=== PATIENT | female | born 1970 | race Caucasian/White ===

== ENCOUNTER 2021-01-20 12:35 | Emergency (ER) | payer OTHER, SELFPAY ==
--- NOTE | 2021-01-20 | ECG_ITS ---
Test Reason : PALPITATIOMS Blood Pressure : / mmHG Vent. Rate : 065 BPM Atrial Rate : 065 BPM P-R Int : 166 ms QRS Dur : 084 ms QT Int : 428 ms P-R-T Axes : 016 -23 001 degrees QTc Int : 445 ms Normal sinus rhythm Minimal voltage criteria for LVH, may be normal variant Borderline ECG No previous ECGs available Referred By: Orion Naylor Electronically Signed By:CHERYL LAKE MD
[2021-01-20 12:41] VITALS: BP 165/99; PULSE 86; RESP 17; TEMP 37; O2SAT 97; BMI 48.4
--- NOTE | 2021-01-20 14:23 | ED_ITS ---
HPI - Arrhythmia/Palpitations General Chief Complaint: Arrhythmia/Palpitations Stated Complaint: palpitation Time Seen by Provider: 01/20/21 14:19 Source: patient Mode of arrival: ambulatory Limitations: no limitations History of Present Illness HPI narrative: intermittent palpitations for the past month, this is the first time being seen. MD complaint: rapid heart beat and palpitations Onset (ago): month(s) Duration: intermittent (last for few seconds only) Severity: moderate Context: occurred during rest and occurred during exertion Related Data Allergies Allergy/AdvReac Type Severity Reaction Status Date / Time ibuprofen [IBUPROFEN] Allergy Intermediate SWELLING/HIVES, Verified 01/20/21 12:41 hives, oral swelling Review of Systems Constitutional: Constitutional: Reports no additional constitutional complaints Eyes: Eyes: Reports no additional eye complaints ENT: Denies dizziness Cardiovascular: Cardiovascular: Reports no additional cardiovascular complaints Respiratory: Respiratory: Reports as per HPI Gastrointestinal: Gastrointestinal: Reports no additional gastrointestinal complaints Genitourinary: Genitourinary: Reports no additional female genitourinary complaints Musculoskeletal: Musculoskeletal: Reports no additional musculoskeletal compl aints Integumentary/Breasts: Skin/Breast: Denies rash Neurologic: Reports system reviewed and no additional complaints, except as documented, Denies dizziness and Denies Sensory deficit (Neuro) Psychiatric: Psychiatric: Denies anxiety [facility] Past Medical History Surgical History (Updated 01/20/21 @ 12:44 by Lianet Arrington RN) Hx of cholecystectomy Social History Social History Smoking Status: Never smoker Use of substances other than those prescribed or required for medical reasons: No Advance Directives: No Advance Directives Information Provided: Yes Physical Exam Vital Signs: Vital Signs: Last Vital Signs Temp 98.8 F 01/20/21 14:46 Pulse 75 01/20/21 14:46 Resp 12 01/20/21 14:46 BP 135/66 01/20/21 14:46 Pulse Ox 98 01/20/21 14:46 Body Mass Index 48.4 Const: General: healthy appearing Nutritional Appearance: average body habitus Orientation/consciousness: oriented to person and patient oriented x3 Limitations: no limitations HENMT: Head: Yes normal to inspection Ears: external ears normal General nose exam: Normal external nose present Mouth: Normal oral and palatal mucosa present and oropharynx normal Throat: Yes posterior oropharynx normal Eyes: General: appearance normal, both eyes and all related structures Neck: Other: supple Neck: Yes normal visual inspection Chest: Chest palpation & inspection: normal inspection of the chest Resp: Auscultation: clear to auscultation bilaterally Cardio: Jugular venous distension: no JVD Rate: regular rate Rhythm: regular rhythm Heart sounds: S1 normal heart sound present and S2 normal heart sound present GI: Inspection: Yes normal to inspection Palpation (GI): Soft to palpation, nontender and No hepatosplenomegaly present Auscultation: normal bowel sounds : General: Yes no CVA tenderness Back/Spine/Pelvis: Back: no CVA tenderness Skin: General skin exam: no rashes or lesions noted Neuro: General: oriented to person and patient oriented x3 Cranial nerves: Yes CN's II-XII intact bilaterally Motor exam (neuro): 5/5 motor strength present throughout Sensory Exam: No Sensory deficit (Neuro) Extrem: General: Yes normal to inspection Psych: Appearance: grossly normal Course Course Course Narrative: resting comfortably, normal vitals, normal EKG, will dc home MDM - Arrhythmia/Palpitations MDM Narrative Medical decision making narrative: no evidence of arrhythmia, needs 30 day holter monitor Differential Diagnosis Differential diagnosis: Likely palpitations Lab Data Result diagrams: 01/20/21 14:56 01/20/21 14:55 Labs: Lab Results 01/20/21 01/20/21 01/20/21 Range/Units 14:55 14:55 14:56 WBC 7.8 (4.8-10.8) X10*3/uL RBC 4.67 (4.20-5.50) X10*6/uL Hgb 9.9 L (12.0-16.0) g/dl Hct 33.6 L (37-47) % MCV 71.9 L (80-98) fL MCH 21.2 L (27.0-33.0) pg MCHC 29.5 L (31.0-35.0) g/dl RDW 17.8 H (11.0-16.0) % Plt Count 272 (160-400) X10*3/uL MPV 10.0 (9.4-12.3) fL Immature Gran % (Auto) 0.3 (0.0-0.4) % Neut % (Auto) 64.8 (45-73) % Lymph % (Auto) 24.9 (20-40) % [place] % (Auto) 8.3 (2-11) % Eos % (Auto) 1.3 (0-4) % Baso % (Auto) 0.4 (0-2) % Lymph # (Auto) 1.9 (1.2-4.9) X10*3/uL [place] # (Auto) 0.6 (0.1-1.2) X10*3/uL Eos # (Auto) 0.1 (0.0-0.4) X10*3/uL Baso # (Auto) 0.0 (0.0-0.2) X10*3/uL Abs Immat Gran (auto) 0.02 (0.00-0.03) X10*3/uL Absolute Neuts (auto) 5.0 (2.0-8.3) X10*3/uL Absolute Nucleated RBC 0.000 (0.0-0.012) X10*3/uL Nucleated RBC % (auto) 0.0 (0.0-0.2) /100WBC Sodium 136 (135-145) mmol/L Potassium 3.8 (3.3-5.1) mmol/L Chloride 99 (96-108) mmol/L Carbon Dioxide 29 (22-29) mmol/L Anion Gap 12 (12-20) BUN 10 (9-16) mg/dL Creatinine 0.83 (0.5-1.4) mg/dL Estim Creat Clear Calc 117.7 Estimated GFR > 60 Random Glucose 90 (60-115) mg/dL Calcium 8.9 (8.4-10.2) mg/dL Troponin I High Sens < 3.5 (<3.5-17.0) ng/L TSH 1.23 (0.32-4.0) uIU/mL Discharge Plan Discharge Clinical Impression: Palpitations Patient Disposition: Home, Self-Care Instructions: Heart Palpitations (ED) Referrals: Isabel Valentine MD [Primary Care Provider] - 2 days
[2021-01-20 14:46] VITALS: BP 135/66; PULSE 70; PULSE 75; RESP 12; TEMP 37.1; O2SAT 98
[2021-01-20 15:04] LABS: MANUAL DIFF FLAG NO
[2021-01-20 15:07] LABS: Basophils Percent Auto 0.4 % (0-2); Eosinophils Absolute Auto 0.1 X10*3/uL (0.0-0.4); Eosinophils Percent Auto 1.3 % (0-4); Hematocrit 33.6 % (37-47); Hemoglobin 9.9 g/dl (12.0-16.0); Imm Gran Abs Auto 0.02 X10*3/uL (0.00-0.03); Imm Gran Pct Auto 0.3 % (0.0-0.4); Lymphocytes Absolute Auto 1.9 X10*3/uL (1.2-4.9); Lymphocytes Percent Auto 24.9 % (20-40); Mean Corpuscular HGB Conc 29.5 g/dl (31.0-35.0); Mean Corpuscular Hemoglobin 21.2 pg (27.0-33.0); Mean Corpuscular Volume 71.9 fL (80-98); Monocytes Absolute Auto 0.6 X10*3/uL (0.1-1.2); Monocytes Percent Auto 8.3 % (2-11); Neutrophils Percent Auto 64.8 % (45-73); Platelet Count 272 X10*3/uL (160-400); Red Blood Count 4.67 X10*6/uL (4.20-5.50); Red Cell Distribution Width 17.8 % (11.0-16.0); White Blood Count 7.8 X10*3/uL (4.8-10.8)
[2021-01-20 15:27] LABS: Anion Gap 12 (12-20); Blood Urea Nitrogen 10 mg/dL (9-16); Calcium 8.9 mg/dL (8.4-10.2); Carbon Dioxide 29 mmol/L (22-29); Chloride 99 mmol/L (96-108); Creatinine Clr Calc Pharmacy 117.7; Estimated Glomerular Filt Rate > 60; Glucose Random 90 mg/dL (60-115); Potassium 3.8 mmol/L (3.3-5.1); Sodium 136 mmol/L (135-145)
[2021-01-20 15:34] LABS: Troponin-I High Sensitivity < 3.5 ng/L (<3.5-17.0)
[2021-01-20 15:49] LABS: TSH reflex Free T4 1.23 uIU/mL (0.32-4.0)
[2021-01-20 17:14] VITALS: BP 145/70; PULSE 67; RESP 18; TEMP 36.4; O2SAT 98
== END 2021-01-20 17:37 | disposition home or self-care (01) ==
PROVIDERS: Emergency Provider Emergency Medicine; PCP Internal Medicine
DX: R00.2 Palpitations (principal)
CPT/HCPCS: 36415; 80048; 84443; 84484; 85025; 93005; 99283; 99284

== ENCOUNTER 2021-10-23 10:54 | Outpatient (REF) | payer OTHER, SELFPAY ==
--- NOTE | ~2021-10-23 | US_ITS ---
EXAMINATION: US PELVIS CLINICAL INFORMATION: Uterine leiomyoma. History of fibroids and heavy menses. COMPARISON: Ultrasound pelvis 04/10/2015. TECHNIQUE: Ultrasound of the pelvis is performed using both transabdominal and transvaginal transducers along with Doppler. Transvaginal imaging is performed due to inadequate visualization transabdominally. FINDINGS: Uterus: The uterus is and anteflexed measuring 12.5 cm in length, 7.5 cm in AP and 8.5 cm in transverse dimension. The double wall endometrial thickness is 1.2 cm and appears heterogeneous with echogenic intraluminal moving blood products. The uterus is smooth in contour and has normal myometrial echogenicity. There is a small hypoechoic lesion in the posterior fundus measuring 2.2 x 2.2 x 2.2 cm. Previously it measured 1.8 x 1.5 x 0.9 cm. There are small anechoic nabothian cysts seen. Adnexa: Both ovaries are visualized. There is normal color flow to the adnexa. There is no ovarian torsion. There is no pelvic ascites or fluid collection. Right ovary is not visualized. Left ovary is not visualized. There is no free fluid in the cul-de-sac. US/US pelvic and transvaginal IMPRESSION: Heterogeneous endometrium measuring 1.2 cm with a small posterior fundal fibroid which is slightly increased in size since 04/10/2015. Small nabothian cysts in the cervix. Both ovaries are not seen.
== END 2021-10-23 10:55 | disposition home or self-care (01) ==
LOC: HO.US 10:54
PROVIDERS: Visit Provider Advanced Practice Midwife
DX: D25.9 Leiomyoma of uterus, unspecified (principal)
CPT/HCPCS: 76830; 76856

== ENCOUNTER 2021-10-28 11:04 | Outpatient (REF) | payer OTHER, SELFPAY ==
[2021-10-28 13:23] LABS: Hematocrit 35.9 % (37.0-47.0); Hemoglobin 11.7 g/dl (12.0-16.0); Mean Corpuscular HGB Conc 32.6 g/dl (31.0-35.0); Mean Corpuscular Volume 89.1 fL (80.0-98.0); Mean Platelet Volume 10.6 fL (9.4-12.3); Platelet Count 287 X10*3/uL (160-400); Red Blood Count 4.03 X10*6/uL (4.20-5.50); Red Cell Distribution Width 13.2 % (11.0-16.0); White Blood Count 5.4 X10*3/uL (4.8-10.8)
[2021-10-28 13:59] LABS: HCG Quantitative < 2 mIU/mL; TSH reflex Free T4 1.17 uIU/mL (0.32-4.0)
[2021-10-28 15:36] LABS: CT PCR NOT DETECTED (Not Detect.); NG PCR NOT DETECTED (Not Detect.)
[2021-10-30 22:52] LABS: HPV mRNA E6/E7 rflx Not Detected (Not Detected)
== END 2021-10-28 11:05 | disposition home or self-care (01) ==
LOC: HO.LAB 11:04
PROVIDERS: PCP Internal Medicine; Visit Provider Obstetrics & Gynecology
DX: Z01.419 Encounter for gynecological examination (general) (routine) without abnormal findings (principal); N93.9 Abnormal uterine and vaginal bleeding, unspecified
CPT/HCPCS: 36415; 84443; 84702; 85027; 87491; 87591; 87624; 88142

== ENCOUNTER 2021-11-12 12:22 | Outpatient (REF) | payer OTHER, SELFPAY | END 2021-11-12 12:23 | disposition home or self-care (01) | LOC: HO.LAB 12:22 | PROVIDERS: PCP Internal Medicine; Visit Provider Obstetrics & Gynecology | DX: N93.9 Abnormal uterine and vaginal bleeding, unspecified (principal); D25.2 Subserosal leiomyoma of uterus; I10 Essential (primary) hypertension; Z88.8 Allergy status to other drugs, medicaments and biological substances; Z30.433 Encounter for removal and reinsertion of intrauterine contraceptive device | CPT/HCPCS: 58100; 58300; 88305; J7298 ==

== ENCOUNTER → 2021-11-17 08:04 | Outpatient (BNVA) | payer OTHER, SELFPAY | PROVIDERS: PCP Internal Medicine; Visit Provider Obstetrics & Gynecology ==

== ENCOUNTER 2021-11-19 08:18 | Day surgery (SDC) | payer OTHER, SELFPAY ==
--- NOTE | 2021-11-18 08:12 | HO.ANESPROP2 ---
HPI - Anesthesia Eval Consult details Narrative: 51yo F for Uterine Ablation w/Novasure PMFSH Active Problems Active Problems: All Active Problems (Updated 10/28/21 @ 12:02 by Bolivar King MD) Well woman exam (Acute) Abnormal uterine bleeding (AUB) (Acute) Past Medical History Medical History Hypertension Surgical History Surgical History History of Hx of cholecystectomy Social History Social History Patient Tobacco Use Status: Never used Tobacco Meds Allergies Allergy/AdvReac Type Severity Reaction Status Date / Time ibuprofen [IBUPROFEN] Allergy Intermediate SWELLING/HIVES, Verified 11/12/21 12:45 hives, oral swelling Home Medications Medication Instructions Recorded Confirmed Last Taken Type ferrous sulfate 325 mg (65 mg 325 mg PO BID 10/28/21 Unknown History iron) tablet lisinopril 10 mg tablet 10 mg PO DAILY 10/28/21 11/19/21 History Exam Exam Date and Time: November 18, 202112 Narrative Narrative: EKG 01/2021 Vent. Rate : 065 BPM ? ? Atrial Rate : 065 BPM ?? P-R Int : 166 ms? QRS Dur : 084 ms ? ? QT Int : 428 ms ? ? ? P-R-T Axes : 016 -23 001 degrees ?? QTc Int : 445 ms ? Normal sinus rhythm Minimal voltage criteria for LVH, may be normal variant Borderline ECG No previous ECGs available Assessment and Plan Assessment Anesthesia Assessment: Chart Reviewed
[2021-11-19 08:32] VITALS: BMI 46.0
[2021-11-19 08:48] LABS: UPreg QC Valid YES
[2021-11-19 08:49] LABS: Urine Pregnancy NEGATIVE (NEGATIVE)
[2021-11-19 08:54] VITALS: BP 135/74; PULSE 90; RESP 16; TEMP 37.3; O2SAT 97
[2021-11-19] MEDS: Lactated Ringers 1,000 ML 100 ML IVCONT (09:06)
--- NOTE | 2021-11-19 10:11 | P.HPSUR_ITS ---
Pre-Procedural Eval Section A Date of Service: 11/19/21 The patient is an INPATIENT: No Changes since office visit: No Cold of Flu in the past 2 weeks, No New Medical Problems, No Changes in Medication and No Patient answered all questions The History & Physical has been completed within 30 days and I have reviewed it.: Yes Section B Chief Complaint: bleeding Allergies: Allergies Allergy/AdvReac Type Severity Reaction Status Date / Time ibuprofen Allergy Intermediate SWELLING/HIVES Verified 11/12/21 12:45 [IBUPROFEN] , hives, oral swelling Plan Diagnosis/Plan: Unchanged I have reviewed the history and physical and performed a pertinent physical examination on my patient. No changes have occurred unless specified.
--- NOTE | 2021-11-19 10:28 | P.BOP_ITS ---
Brief Operative Note Date of Service: 11/19/21 Pre-op diagnosis: Menometrorrhagia Post-op diagnosis: same Procedure: NovaSure Endometrial Ablation Surgeon: Bolivar King MD Anesthesia: MAC Was an Receiving Dock Checker used for this Procedure?: No Estimated blood loss (mL): 0 Pathology: none sent Condition: stable Disposition: PACU
--- NOTE | 2021-11-19 10:29 | P.OP_ITS ---
Operative Note Operative Note Date of Service: 11/19/21 Narrative: Preop diagnosis: Menorrhagia Post Op Diagnosis: Same Op: Novasure Endometrial Ablation Anesthesia: MAC Building Performance Specialist: None QBL: Minimal Pathology: None Complications: None Procedure: The patient was put in the dorsal lithotomy position. She was prepped and draped in the usual sterile manner. Bimanual exam prior to prepping revealed a mobile, anteverted uterus. A speculum was placed in the vagina and the anterior lip of the cervix was grasped with a single toothed tenaculum and brought forward. Taking care not to enter deep into the uterus, a sound was passed inside to measure the length of the uterus and cervix. This length was found to be 8 cm. Next, Hegar dilator was inserted into the cervical os to measure the cervical length which was 3 cm. This yielded an endometrial cavity length of 6.5 cm. A series of Hegar dilators were then inserted sequentially into the cervical os up to a size of 5 mm. The Novasure device was then opened and tested; the fan deployed easily. The instrument was set to the correct cavity length and introduced into the uterine cavity. The fan was slowly deployed with gentle movements to ensure a snug fit within the cavity. The cavity width read 4.5 cm. The measurements were imported and a cavity check was done. The trumpet was then slid down to the cervix and the device was activated. The total burn time was 91 seconds. The fan was retracted and device removed. The fan was examined and revealed charred tissue. The tenaculum was removed and the cervix examined for hemostasis which was achieved using pressure. Finally the speculum was removed. The patient tolerated the procedure well and was brought to the recovery room in a stable condition. At the end of the procedure all sponges and instruments were counted and correct. The blood loss was minimal and there were no complications.
[2021-11-19 10:35] VITALS: BP 116/61; PULSE 77; RESP 18; TEMP 36.6; O2SAT 100
[2021-11-19 10:40] VITALS: BP 127/64; PULSE 77; RESP 16; O2SAT 99
[2021-11-19 10:45] VITALS: BP 132/65; PULSE 65; RESP 17; O2SAT 98
[2021-11-19] MEDS: oxyCODONE HCl Immed Release 5 MG TABLET 10 MG PO (10:49)
[2021-11-19] MEDS: Acetaminophen 325 MG TABLET 650 MG PO (10:50)
[2021-11-19 10:52] VITALS: BP 139/75; PULSE 66; RESP 17; O2SAT 98
[2021-11-19 11:07] VITALS: BP 138/77; PULSE 79; RESP 17; TEMP 36.6; O2SAT 98
== END 2021-11-19 11:32 | disposition home or self-care (01) ==
PROVIDERS: Nurse Practitioner; PCP Internal Medicine; Visit Provider Obstetrics & Gynecology
PROC: (CPT 58353; principal; 2021-11-19 10:00)
DX: N93.9 Abnormal uterine and vaginal bleeding, unspecified (principal); N92.0 Excessive and frequent menstruation with regular cycle; N85.4 Malposition of uterus; Z98.891 History of uterine scar from previous surgery; I10 Essential (primary) hypertension; Z79.899 Other long term (current) drug therapy; Z88.8 Allergy status to other drugs, medicaments and biological substances; Z90.49 Acquired absence of other specified parts of digestive tract
CPT/HCPCS: 58353; 81025; J1100; J2250; J2405; J3010

== ENCOUNTER 2021-11-24 14:41 | Outpatient (REF) | payer OTHER, SELFPAY ==
--- NOTE | 2021-11-19 09:25 | P.CONAN_ITS ---
PMFSH Active Problems Active Problems: All Active Problems (Updated 10/28/21 @ 12:02 by Bolivar King MD) Well woman exam (Acute) Abnormal uterine bleeding (AUB) (Acute) Past Medical History Medical History Hypertension Surgical History Surgical History History of Hx of cholecystectomy History of Problems with Anesthesia: No Social History Social History Patient Tobacco Use Status: Never used Tobacco Use of substances other than those prescribed or required for medical reasons: No Are you DNR?: No Advance Directives: No Advance Directives Information Provided: Yes Meds Allergies Allergy/AdvReac Type Severity Reaction Status Date / Time ibuprofen Allergy Intermediate SWELLING/HIVES Verified 11/12/21 12:45 [IBUPROFEN] , hives, oral swelling Home Medications Medication Instructions Recorded Confirmed Last Taken Type ferrous sulfate 325 325 mg PO BID 10/28/21 Unknown History mg (65 mg iron) tablet lisinopril 10 mg 10 mg PO DAILY 10/28/21 11/19/21 History tablet Exam Exam Date and Time: November 19, [id number] Airway Mallampati Class: II TM Dist: >3cm Neck ROM: Full Loose/Missing/Broken Teeth: No Heart: RRR Lungs: CTA Assessment and Plan Assessment Anesthesia Assessment: Anesthesia Plan Discussed and Chart Reviewed Final Anesthetic Review History of Problems with Anesthesia: No NPO: Yes ASA Class: III Final Preanesthetic Review: Meds/Allgs Chart Reviewed, Consent Obtained/Reviewed and Anes Risks/Benef Reviewed Patient Risk: Intermediate Procedure Risk: Low Anesthetic Plan Anesthetic Plan: GA Disposition: Standard PACU
--- NOTE | ~2021-11-24 | MM_ITS ---
EXAMINATION: MM SCREENING DIGITAL BREAST TOMOSYNTHESIS, BILATERAL CLINICAL INFORMATION: Screening. Asymptomatic. No known family history breast cancer. The lifetime risk of breast cancer based on the Tyrer-Cuzick Model is 8%. COMPARISON: Mammography: 12/24/2015, 05/28/2015, 05/13/2015; targeted right breast ultrasound 05/28/2015. TECHNIQUE: Digital breast tomosynthesis is performed in both the craniocaudal and mediolateral oblique views along with computer-aided detection (CAD). Synthesized 2D images are generated from the tomosynthesis. FINDINGS: There are scattered areas of fibroglandular density (ACR BI-RADS breast composition Category b). Right breast has a spiculated mass posterior upper outer quadrant approximately 1.4 cm in size. Right breast also has a smooth nodule with partially obscured margins, mid 7:00 position approximately 0.9 cm slightly, possibly a cyst. The left breast is unremarkable. There is no interval mass or architectural abnormality. Neither breast shows abnormal calcifications. The bilateral axilla and skin contours are unremarkable. MM/MM tomosynthesis screening BI IMPRESSION: Right: -Spiculated mass upper outer quadrant, 1.4 cm. -Smooth nodule mid central 7:00 position, 0.9 cm. Left: -No mammographic evidence of malignancy. ASSESSMENT: BI-RADS 0: Incomplete - Need Additional Imaging Evaluation RECOMMENDATION: 1. Additional views of the spot CC, spot ML 2 findings right breast. 2. Targeted ultrasound right breast. 3. Radiology department staff will contact the patient for additional imaging. This patient's information was entered into a reminder system with a target due date for their next mammogram.
== END 2021-11-24 14:42 | disposition home or self-care (01) ==
LOC: HO.MAMMO 14:41
PROVIDERS: PCP Internal Medicine; Visit Provider Obstetrics & Gynecology
DX: Z12.31 Encounter for screening mammogram for malignant neoplasm of breast (principal)
CPT/HCPCS: 77063; 77067

== ENCOUNTER → 2021-12-03 12:34 | Outpatient (BNVA) | payer OTHER, SELFPAY | PROVIDERS: Visit Provider Obstetrics & Gynecology ==

== ENCOUNTER 2021-12-05 08:46 | Outpatient (REF) | payer OTHER, SELFPAY ==
--- NOTE | ~2021-12-05 | MM_ITS ---
EXAMINATION: MM DIAGNOSTIC DIGITAL BREAST TOMOSYNTHESIS, RIGHT US DIAGNOSTIC ULTRASOUND BREAST, RIGHT CLINICAL INFORMATION: Recall from screening for spiculated mass upper outer right breast. Also question smooth nodule/cyst central 7:00 position. COMPARISON: Mammography: 11/24/2021, 12/24/2015 TECHNIQUE: Digital breast tomosynthesis is performed. 2D images are generated from the tomosynthesis. The following views are obtained: Spot CC x2, spot ML x2 Ultrasound right breast is targeted to the upper outer quadrant and right axilla. Additional imaging also performed 7:00 through 10:00 position. Grayscale imaging and color Doppler are performed without and with harmonics. FINDINGS: There are scattered areas of fibroglandular density (ACR BI-RADS breast composition Category b). Additional spot views confirm spiculated lesion in area of recent mammographic concern posterior upper outer quadrant. There is no other mass or cyst clearly seen on the additional projections central outer right breast. Ultrasound right breast demonstrates suspicious irregular hypoechoic lesion 10:00 position 8 cm from nipple measuring approximately 1.1 cm. Additional imaging right axilla demonstrates no lymphadenopathy. Additional imaging right breast shows no other cystic or solid mass or architectural abnormality. Results are discussed with the patient at time of visit. Ultrasound-guided core biopsy of the right breast mass is recommended. MM/MM tomosynthesis added views R IMPRESSION: Spiculated lesion upper outer quadrant with ultrasound correlate. No lymphadenopathy. ASSESSMENT: BI-RADS 4: Suspicious RECOMMENDATION: Ultrasound-guided core biopsy spiculated lesion upper outer quadrant right breast. This patient's information was entered into a reminder system with a target due date for their next mammogram.
== END 2021-12-05 08:47 | disposition home or self-care (01) ==
LOC: HO.MAMMO 08:46
PROVIDERS: Visit Provider Obstetrics & Gynecology
DX: N63.13 Unspecified lump in the right breast, lower outer quadrant (principal)
CPT/HCPCS: 76642; 77061; 77065

== ENCOUNTER → 2021-12-09 09:58 | Outpatient (BNVA) | payer OTHER, SELFPAY | PROVIDERS: PCP Internal Medicine; Visit Provider Obstetrics & Gynecology ==

== ENCOUNTER 2021-12-11 09:35 | Outpatient (REF) | payer OTHER, SELFPAY ==
--- NOTE | ~2021-12-11 | MM_ITS ---
EXAMINATION: ULTRASOUND GUIDED CORE BIOPSY BREAST, RIGHT POST PROCEDURE DIGITAL BREAST TOMOSYNTHESIS, RIGHT CLINICAL INFORMATION: Spiculated 1.1 cm lesion upper outer right breast. COMPARISON: Mammography and right breast ultrasound 12/05/2021, mammography 11/24/2021. FINDINGS: Proper informed consent is obtained from the patient after discussion of the procedure, potential risks and complications, and alternatives. Patient was given an opportunity for questions. The patient appeared to understand. The patient consented to the procedure and signed the consent form. GUIDANCE: Ultrasound-guided; aseptic technique. LESION: Spiculated nodule posterior upper outer right breast. APPROACH: Lateral medial. ANESTHESIA: 15 mL carbonated 1% lidocaine. DERMATOTOMY: Single skin wil dermatotomy performed. NEEDLE: 14-gauge Achieve core biopsy device with 13.5-gauge co-axial guide needle. CORES: 6. CLIP: HydroMARK; shape: open coil. POST PROCEDURE DIGITAL BREAST TOMOSYNTHESIS, RIGHT: The post biopsy mammogram is performed in separate room using separate digital tomography equipment from the biopsy procedure. CC and ML views are obtained. Synthesized 2-D images are generated from the tomography. There are scattered areas of fibroglandular density (breast composition category: b). The clip marker is in position. No gross hematoma. The patient tolerated the procedure well. No immediate complications. Home instructions reviewed with the patient. Final pathology results are pending. MM/MM diagnostic mammo unilat RT IMPRESSION: 1. Status post ultrasound-guided core biopsy right breast. 2. Clip placed: HydroMARK; shape: open coil. 3. Pathology pending. An addendum report will be issued.
[2021-12-11] MEDS: Lidocaine HCl 1 % 20 ML VIAL 14 ML SUBCUT (11:04)
[2021-12-11] MEDS: Sodium Bicarbonate 8.4% 50 MEQ/50 ML VIAL SUBCUT (11:06)
== END 2021-12-11 09:36 | disposition home or self-care (01) ==
LOC: HO.MAMMO 09:35
PROVIDERS: PCP Internal Medicine; Visit Provider Surgery
DX: R92.8 Other abnormal and inconclusive findings on diagnostic imaging of breast (principal)
CPT/HCPCS: 19083; 77065; 88305; 88342; 88360; A4648

== ENCOUNTER → 2021-12-16 10:03 | Outpatient (BNVA) | payer OTHER, SELFPAY | PROVIDERS: PCP Internal Medicine; Referring Provider Internal Medicine; Visit Provider Surgery | DX: R92.8 Other abnormal and inconclusive findings on diagnostic imaging of breast (principal) ==

== ENCOUNTER 2021-12-24 06:15 | Day surgery (SDC) | payer OTHER, SELFPAY ==
--- NOTE | ~2021-12-24 | MM_ITS ---
EXAMINATION: MM MAMMOGRAM GUIDED NEEDLE LOCALIZATION BREAST, RIGHT MM NEEDLE LOCALIZATION SPECIMEN FROM THE RIGHT BREAST CLINICAL INFORMATION: Recent diagnosis invasive ductal carcinoma with DCIS. COMPARISON: Mammography 11/24/2021, 12/05/2021, 12/11/2021, ultrasound right breast 12/05/2021, ultrasound-guided core biopsy right breast 12/11/2021. TECHNIQUE NEEDLE LOC: Proper informed consent is obtained from the patient after discussion of the procedure, potential risks and complications, and alternatives including declining the procedure today. Patient was given an opportunity for questions. The patient appeared to understand. The patient consented to the procedure and signed the consent form. GUIDANCE: Digital mammography. APPROACH: Lateral Medial. TARGET: Mass with HydroMARK open coil clip marker. ANESTHESIA: Carbonated lidocaine 1%: 5 mL. LOCALIZATION MARKER: [place] MammaLok, 5 cm length. The skin is prepped and local anesthesia administered. The needle is positioned and position assessed with mammography. The wire is hooked into position. [place] needle protector placed. The patient tolerated the procedure well and had no immediate complication. Following the procedure, 4% lidocaine ointment was administered to the left areola and covered with Tegaderm in anticipation of nuclear lymphoscintigraphy injection for sentinel lymph node mapping. Procedure results called to medical radiation therapist (zoë) for Dr. Ibanez. TECHNIQUE SPECIMEN RADIOGRAPH: Imaging of the excised specimen is performed using digital mammography in 1 view. FINDINGS SPECIMEN RADIOGRAPH: The specimen shows the needle and hookwire are delivered intact. The biopsy clip marker is identified in the specimen adjacent to the localization needle. There are multiple fibroglandular densities in the specimen as well as some punctate calcifications adjacent to the localization needle tip. Results were called to Dr. Jin Ibanez in the operating room at the time of imaging. MM/MM needle loc RT IMPRESSION: 1. Status post right breast needle localization with wire hooked into position. 2. Post operative specimen radiograph obtained.
--- NOTE | ~2021-12-24 | NM_ITS ---
EXAMINATION: NM LYMPHOSCINTIGRAPHY BREAST, RIGHT CLINICAL INFORMATION: Recent diagnosis invasive ductal cancer with DCIS right breast upper outer quadrant. COMPARISON: Mammography 11/24/2021, 12/05/2021, 12/11/2021, needle localization right breast 12/24/2021. TECHNIQUE: Informed consent was obtained prior to the exam. Lidocaine gel administered to areola within 60 minutes of the procedure immediately following the localization procedure. Technetium 99m-Lymphoseek 0.5 mCi was divided into 4 syringes with intradermal administration at 4 quadrants around the peripheral areola. The patient tolerated the procedure well. Imaging is performed in 3 views within 40 minutes of injection. FINDINGS: There is strong activity around the areola. There is a single focus of focal activity at the low axillary tail consistent with a sentinel node. NM/NM sentinel node w imaging IMPRESSION: Status post breast radionuclide lymphoscintigraphy for sentinel lymph node mapping.
[2021-12-24 06:54] VITALS: BMI 14.5
[2021-12-24 07:04] LABS: UPreg QC Valid YES; Urine Pregnancy NEGATIVE (NEGATIVE)
[2021-12-24 07:08] VITALS: BP 139/82; PULSE 65; RESP 18; TEMP 37.1; O2SAT 97
[2021-12-24 07:24] VITALS: BMI 46.7
--- NOTE | 2021-12-24 07:27 | MHC.SHP ---
Pre-Procedural Eval Section A Date of Service: 12/24/21 The patient is an INPATIENT: No Changes since office visit: Yes Patient answered all questions; No Cold of Flu in the past 2 weeks, No New Medical Problems and No Changes in Medication The History & Physical has been completed within 30 days and I have reviewed it.: Yes Section B Chief Complaint: Infiltrating ductal carcinoma of right breast Allergies: Allergies Allergy/AdvReac Type Severity Reaction Status Date / Time ibuprofen [IBUPROFEN] Allergy Intermediate SWELLING/HIVES, Verified 12/16/21 10:08 hives, oral swelling Plan Diagnosis/Plan: Unchanged I have reviewed the history and physical and performed a pertinent physical examination on my patient. No changes have occurred unless specified.
--- NOTE | 2021-12-24 08:42 | P.CONAN_ITS ---
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) Abnormal mammogram of right breast (Acute) Abnormal ultrasound of breast (Acute) Abnormal mammogram (Acute) Well woman exam (Acute) Abnormal uterine bleeding (AUB) (Acute) Past Medical History Medical History Ductal carcinoma in situ of right breast Hypertension Infiltrating ductal carcinoma of right breast Family History Family History Paternal Grandmother Cancer of unknown origin Surgical History Surgical History History of Hx of cholecystectomy History of Problems with Anesthesia: No Social History Social History Alcohol intake: never Patient Tobacco Use Status: Never used Tobacco Use of substances other than those prescribed or required for medical reasons: No Are you DNR?: No Advance Directives: No Advance Directives Information Provided: Yes Recently lost weight without trying: No Meds Allergies Allergy/AdvReac Type Severity Reaction Status Date / Time ibuprofen [IBUPROFEN] Allergy Intermediate SWELLING/HIVES, Verified 12/16/21 10:08 hives, oral swelling Active Medications: Current Medications Lactated Ringer's (Lr) 1,000 mls @ 100 mls/hr IVCONT .Q10H NIKKI Home Medications Medication Instructions Recorded Confirmed Last Taken Type ferrous sulfate 325 mg (65 mg 325 mg PO BID 10/28/21 12/16/21 Unknown History iron) tablet lisinopril 10 mg tablet 10 mg PO DAILY 10/28/21 12/16/21 11/19/21 History Exam Exam Date and Time: December 24, 2021 0842 Height,Weight and Vital Signs: Height 5 ft 6 in Weight 131.542 kg Last Vital Signs Temp 98.7 F 12/24/21 07:08 Pulse 65 12/24/21 07:08 Resp 18 12/24/21 07:08 BP 139/82 12/24/21 07:08 Pulse Ox 97 12/24/21 07:08 Pertinent Lab Results Pertinent Lab Results: Laboratory Tests 12/24/21 06:50 Urine Test NEGATIVE Airway Mallampati Class: II TM Dist: >3cm Neck ROM: Full Loose/Missing/Broken Teeth: No Heart: RRR Lungs: CTA Assessment and Plan Assessment Anesthesia Assessment: Anesthesia Plan Discussed and Chart Reviewed Final Anesthetic Review History of Problems with Anesthesia: No NPO: Yes ASA Class: III Final Preanesthetic Review: Meds/Allgs Chart Reviewed, Consent Obtained/Reviewed and Anes Risks/Benef Reviewed Patient Risk: Low Procedure Risk: Low Anesthetic Plan Anesthetic Plan: GA Disposition: Standard PACU
[2021-12-24] MEDS: Lidocaine HCl 1 % 20 ML VIAL 9 ML SUBCUT (09:21)
[2021-12-24] MEDS: Sodium Bicarbonate 8.4% 50 MEQ/50 ML VIAL SUBCUT (09:22)
--- NOTE | 2021-12-24 10:28 | W.PM.OPN ---
Operative Note Operative Note Date of Service: 12/24/21 Narrative: Preoperative diagnosis: Infiltrating ductal carcinoma right breast Postoperative diagnosis: Infiltrating ductal carcinoma right breast Procedure: Right breast lumpectomy with needle localization, sentinel node biopsy right axilla Surgeon: Jin Ibanez MD Higher Level Teaching Assistant: Eri Altman PA-C Anesthesia: General LMA Indications for procedure: 51-year-old female patient presenting with a density noted on screening mammogram and ultrasound. She subsequent underwent ultrasound-guided core biopsy which confirmed an infiltrating ductal carcinoma, grade 2 with ductal carcinoma in situ, grade 2, ER/NV positive, HER2 Nazario negative, Ki-67 15%. She presents today for lumpectomy and sentinel node biopsy. Operative findings: Marking clip in the specimen x-ray. Gross pathology revealed adequate margins. Specimen: right breast lumpectomy, sentinel nodes 1 through 3, additional axillary tissue. Estimated blood loss: 5 mL Complications: none Procedure details: patient was brought to the OR placed in a supine position. After administering general anesthesia the patient's right breast and axilla were prepped or ChloraPrep and draped in a sterile fashion. A surgical time-out was called and the consent confirmed. Patient received preoperative antibiotics and Venodyne boots were in place. Local anesthesia consisting of 0.5% Sensorcaine was then infiltrated upper outer quadrant adjacent to the localizing needle. A curvilinear incision then made to include the entrance site of the localizing needle in the upper outer quadrant. This was carried out through subcutaneous tissue. Superior inferior skin flaps were then created. A core tissue surrounding the localizing needle was then obtained using electrocautery dissection. Margins were begun in the inferior margin followed by anterior and medial margin, superior margin, inferior margin and finally the lateral margin. This was marked with a long suture at the lateral margin , short suture on the superior margin, and loop suture in the posterior margin. Specimen was then sent to radiology and pathology for further examination. As the incision was in the upper outer quadrant adjacent to the axilla the sentinel node was excised to the same incision. The gamma probe was then used to identify the site of radio activity. This was grasped with an Allis clamp and a palpable node was identified at this location. This node was excised using the electrocautery and sent as sentinel node number 1 with counts of 13,300. 2 additional radioactive nodes were identified and excised. The additional piece of axillary tissue was also excised but contain no palpable lymph node. This was sent as additional axillary tissue. No further radioactive nodes or will nodes were identified in the right axilla. After confirmation of an adequate breast specimen the wounds were irrigated with saline solution and suctioned dry. Clavipectoral fascia was then reapproximated using interrupted 3-0 Polysorb sutures. The breast tissue and dermis reapproximated using interrupted 3-0 Polysorb sutures. Skin was then closed using a running subcuticular 4-0 Polysorb suture. Steri-Strips 2 x 2 gauze and Tegaderm were then applied. The patient tolerated the procedure well. Sponge, instrument, and needle counts were reported as correct. The patient was transferred to PACU in stable condition. Breast [place] Node Biopsy Substrate(s) used for sentinel node biopsy in the non-neoadjuvant setting: Radiotracer Substrate(s) used for sentinel node biopsy in the neoadjuvant setting: N/A All colored nodes or non-colored nodes present at the end of a dye filled lymphatic channel were removed, if dye was used as the substrate for localization: N/A All significantly radioactive nodes were removed, if radionuclide was used as the substrate for localization: Yes All palpably suspicious nodes were removed, if present: Yes If clips were placed in pathology-involved nodes, those nodes were identified and removed: N/A General Surg. - Synoptic Notes Breast [place] Node Biopsy Substrate(s) used for sentinel node biopsy in the non-neoadjuvant setting: Radiotracer Substrate(s) used for sentinel node biopsy in the neoadjuvant setting: N/A All colored nodes or non-colored nodes present at the end of a dye filled lymphatic channel were removed, if dye was used as the substrate for localization: N/A All significantly radioactive nodes were removed, if radionuclide was used as the substrate for localization: Yes All palpably suspicious nodes were removed, if present: Yes If clips were placed in pathology-involved nodes, those nodes were identified and removed: N/A
[2021-12-24 12:30] VITALS: BP 137/71; PULSE 71; RESP 20; TEMP 36.6; O2SAT 99
[2021-12-24 12:38] VITALS: BP 131/65; PULSE 75; RESP 16; O2SAT 95
[2021-12-24 12:44] VITALS: BP 129/67; PULSE 53; RESP 16; O2SAT 96
[2021-12-24 12:49] VITALS: BP 135/66; PULSE 51; RESP 16; O2SAT 98
[2021-12-24 13:08] VITALS: BP 136/67; PULSE 58; RESP 17; O2SAT 98
== END 2021-12-24 13:52 | disposition home or self-care (01) ==
PROVIDERS: Anesthesiology; PCP Internal Medicine; Visit Provider Surgery
PROC: (CPT 19301; principal; 2021-12-24 11:00)
PROC: (CPT 19301; 2021-12-24 11:00)
DX: C50.411 Malignant neoplasm of upper-outer quadrant of right female breast (principal); Z17.0 Estrogen receptor positive status [ER+]; I10 Essential (primary) hypertension; Z90.49 Acquired absence of other specified parts of digestive tract; Z88.8 Allergy status to other drugs, medicaments and biological substances; Z79.899 Other long term (current) drug therapy
CPT/HCPCS: 19301; 38525; 19281; 78195; 81025; 88305; 88307; 88329; 88342; A4648; A9520; J0690; J1100; J2250; J2405; J3010

== ENCOUNTER → 2022-01-01 14:05 | Outpatient (BNVA) | payer OTHER, SELFPAY | PROVIDERS: PCP Internal Medicine; Referring Provider Internal Medicine; Visit Provider Surgery | DX: Z13.89 Encounter for screening for other disorder (principal) ==

== ENCOUNTER → 2022-02-05 09:02 | Outpatient (BNVA) | payer OTHER, SELFPAY | PROVIDERS: PCP Internal Medicine; Referring Provider Internal Medicine; Visit Provider Surgery | DX: Z13.89 Encounter for screening for other disorder (principal) ==

== ENCOUNTER 2022-03-23 11:46 | Emergency (ER) | payer OTHER, SELFPAY ==
[2022-03-23 11:54] VITALS: BP 156/96; PULSE 79; RESP 18; TEMP 36.6; O2SAT 97; BMI 46.0
[2022-03-23 12:15] LABS: COVID-19 Test Positive (Negative); IDNOW Serial# 16C4AD1C
--- NOTE | 2022-03-23 13:12 | ED.HA ---
HPI - Headache General Chief Complaint: Headache Stated Complaint: HEADACHE, BLOOD PRESSURE Time Seen by Provider: 03/23/22 12:53 Source: patient and family Mode of arrival: ambulatory Limitations: no limitations History of Present Illness HPI Narrative: 51-year-old female with a past medical history of hypertension and ductal carcinoma of right breast presenting to the ED with complaints of a headache with elevated blood pressure at home from 135/100's-90's that started this morning despite taking her blood pressure medication. She reports that she was recently diagnosed with COVID on Wednesday and was started on Paxlovid and has taken 5 doses total. She reports she is feeling better from her COVID symptoms. She denies any dizziness, lightheadedness, changes in vision, jaw pain, paresthesias, chest pain, shortness of breath, dyspnea on exertion, weakness, focal weakness, orthopnea, nausea /vomiting, diarrhea, abdominal pain, lower extremity edema or calf tenderness, recent travel /Falls or injuries or any other symptoms complaints or concerns at this time. 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) Onset description: gradually and on awakening Location: generalized Severity: mild Quality & Timing: aching and constant Exacerbating factors: none Relieving factors: nothing Context: occurred at rest Associated symptoms: none Treatments prior to arrival: acetaminophen Related Data Home Medications Medication Instructions Recorded Confirmed ferrous sulfate 325 mg (65 mg 325 mg PO BID 10/28/21 02/05/22 iron) tablet lisinopril 10 mg tablet 10 mg PO DAILY 10/28/21 02/05/22 Previous Rx's Medication Instructions Recorded norethindrone acetate 5 mg tablet 5 mg PO DAILY 30 Days #30 tab 11/14/21 oxycodone-acetaminophen 5 mg-325 1 tab PO Q6H PRN #15 tab 12/24/21 mg tablet (Endocet) sumatriptan succinate 25 mg tablet See Rx Instructions .ROUTE 03/23/22 .COMPLEX #10 tab Allergies Allergy/AdvReac Type Severity Reaction Status Date / Time ibuprofen [IBUPROFEN] Allergy Intermediate SWELLING/HIVES, Verified 01/01/22 14:15 hives, oral swelling Review of Systems Review of Systems: Constitutional : No changes in activity, No lethargy, No recent prior head injury, No agitation, No increased fussiness ENT/Mouth : No Ear Pain, No Nasal discharge/drainage Eyes: No Eye Pain, No Swelling, No Redness, No Foreign Body, No Vision Changes Cardiovascular : No Chest Pain, No SOB Respiratory : No Cough Gastrointestinal : No Nausea, No Vomiting, No abdominal Pain Genitourinary : No Dysuria, No Urinary Frequency, No Urinary Incontinence, No Urgency, No Flank Pain Musculoskeletal : No joint pain, No neck stiffness, No back pain/injury Skin : No lacerations Neuro : No unsteady gait, No Paresthesias, No Loss of Consciousness, No altered mental status, No dizziness, + Headache Denies past medical history of HIV, recent trauma, coagulopathy, recent spinal/ epidural procedure, new medication, URI symptoms, close contacts with similar symptoms, tick bite, or known CO2 exposure. Yes all other systems are reviewed and are negative PMFSH Past Medical History Attestation statement: The following information was validated with the patient. Source: old records reviewed and nursing notes reviewed Medical History Ductal carcinoma in situ of right breast Hypertension Infiltrating ductal carcinoma of right breast Surgical History History of History of lumpectomy of right breast (12/2021) Hx of cholecystectomy Family History Family History Paternal Grandmother Cancer of unknown origin Social History Social History Alcohol intake: never Patient Tobacco Use Status: Never used Tobacco Advance Directives: No Advance Directives Information Provided: No Physical Exam Vital Signs: Vital Signs: Last Vital Signs Temp 98 F 03/23/22 11:54 Pulse 79 03/23/22 11:54 Resp 18 03/23/22 11:54 BP 156/96 H 03/23/22 11:54 Pulse Ox 97 03/23/22 11:54 BMI result Body Mass Index 46.0 Vital signs have been reviewed as normal and appeared to be correct. Blood pressure normal. Heart rate normal. Respiration rate normal. Temperature normal. Oxygen saturation normal. Appearance: Alert. Oriented X3. No acute distress. Head: Normal external exam. Normocephalic. Atraumatic. Able to rotate head bilaterally. Eyes: PERRLA. EOMI. No nystagmus noted. Conjunctiva and sclera normal. Eyelids normal. Corneal reflex normal. ENT: EAC normal. TM's Normal. Hearing normal. Pharynx normal. Uvula midline. tongue midline. Moist mucous membranes. No trismus noted. No drooling noted. No muffled voice noted. Neck: Normal inspection. Neck supple. FROM. No adenopathy. Thyroid Normal. No meningeal signs. No neck mass noted. CVS: Normal heart rate and rhythm. Heart sound normal. No murmurs noted. Pulses normal throughout. Respiratory: No respiratory distress. Painless inspiration. Breath sounds normal. No wheezes/rales/rhonchi noted. Chest nontender. No accessory muscle usage noted or decreased air movement noted. Back: Full range of motion noted. Skin: Skin warm and dry. Normal skin color. Normal skin turgor. No rashes/lesions/lacerations noted. Extremities: Extremities exhibit normal range of motion. Extremities nontender. Able to shrug shoulders bilaterally and keep up against resistance. Neuro: Oriented X 3. No motor deficit. No sensory deficit. Reflexes normal. Moving all extremities. No focal motor deficits. Cranial nerves II-XI intact bilaterally. Facial strength normal. Normal cognition. Speech normal. Gait normal. Strength 5/5 throughout. No pronator drift. No tremor noted. No fasciculations noted. Muscle tone normal throughout. No asterixis noted. Fpscjv-gf-fxih test normal. Heel to baca test normal. Tandem gait normal. Does not sway with eyes open. Romberg test negative. Rapid alternating movement upper extremity normal. Rapid alternating movement lower extremity normal. Hand drop from overhead-Mrs. face. No rigidity noted. NIHSS score 0. Course Course Course Narrative: - Patient afebrile, resting comfortably in no distress. Non-toxic appearing. Patient denies any recent trauma/injury to head. Neurological exam shows no deficits. BP at 156/96. Denies any changes in vision. Patient ambulates without difficulty. Given the history, and physical - most likely diagnosis: [place]/adverse effect to medication. no imaging indicated at this time. Will treat pain. Will d/c with migraine medicaiton and advised to follow - up with PCP. Patient demonstrated good understanding of signs and symptoms to return to ED for further testing should sx worsen. gradual onset [place] SAH: unlikely given gradual onset Intracranial bleed: unlikely given neg trauma, neg anticoagulation Meningitis: unlikely given pt afebrile, neg stiff neck, no immune compromise. Exam without signs of meningismus Temporal arteritis: Unlikely given Neg jaw claudication, no temporal tenderness or nodularity on exam. Cerebral venous thrombosis: unlikely given no h/o hypercoaguable state, no chronic head/neck infection. MDM - Headache Medical Records Attestation: I reviewed the patient's medical records. Lab Data Labs: Lab Results 03/23/22 Range/Units 11:58 COVID-19 (JACQUELINE) Positive A (Negative) COVID-19 Clin Com See Note Discharge Plan Discharge Clinical Impression: Headache, Hypertension, Adverse effects of medication Patient Disposition: Home, Self-Care Instructions: Acute Headache (DC) Additional Instructions: please self isolate per CDC guidelines. You should be at home not around any other people that are not COVID positive at this time To prevent the spread or reinfection to another person or people. Return if any new or worsening symptoms. Continue taking your previously prescribed medications as previously prescribed. Follow-up with her primary care provider. Prescriptions: New sumatriptan succinate 25 mg tablet See Rx Instructions .ROUTE .COMPLEX Qty: 10 0RF Rx Instructions: take 1 tab at onset of headache; if no relief may repeat 1 tab after at least 2 hrs; max = 4 tabs/24 hr No Action norethindrone acetate 5 mg tablet 5 mg PO DAILY 30 Days Qty: 30 0RF oxycodone-acetaminophen [Endocet] 5-325 mg tablet 1 tab PO Q6H PRN (Reason: pain (scale score 7-10)) Qty: 15 0RF lisinopril 10 mg tablet 10 mg PO DAILY 0RF ferrous sulfate 325 mg (65 mg iron) tablet 325 mg PO BID 0RF Mirena 20 mcg/24 hours (7 yrs) 52 mg intrauterine device 1 device intrauterine ONCE Qty: 1 0RF Referrals: Isabel Valentine MD [Primary Care Provider] - 2 days Interventions: ED Discharge Assessment Last Done: 03/23/22 14:02 Discharge Date/Time: 03/23/22 14:04
== END 2022-03-23 14:04 | disposition home or self-care (01) ==
PROVIDERS: Emergency Provider Student in an Organized Health Care Education/Training Program; PCP Internal Medicine
DX: U07.1 COVID-19 (principal); R51.9 Headache, unspecified; I10 Essential (primary) hypertension; T50.995A Adverse effect of other drugs, medicaments and biological substances, initial encounter; Y92.9 Unspecified place or not applicable
CPT/HCPCS: 87635; 99282; 99283

== ENCOUNTER → 2022-10-16 08:45 | Outpatient (BNVA) | payer OTHER, SELFPAY | PROVIDERS: PCP Internal Medicine; Visit Provider Surgery | DX: C50.911 Malignant neoplasm of unspecified site of right female breast (principal) ==

== ENCOUNTER → 2023-02-26 08:51 | Outpatient (BNVA) | payer OTHER, SELFPAY | PROVIDERS: PCP Internal Medicine; Visit Provider Surgery ==

== ENCOUNTER 2023-09-03 08:59 | Outpatient (AMB) | payer OTHER, SELFPAY ==
--- NOTE | 2023-09-03 09:00 | MHC.OFFVIS ---
Intake Vital Signs 09/03/23 09:01 Height 5 ft 6 in Weight 300 lb 11.368 oz BMI 48.5 BP 144/87 H Blood Pressure Location Rt brachial Position Sitting Pulse 83 Pulse Source Pulse Oximeter Pulse Oximetry (%) 100 Oxygen Delivery Method Room Air Intake Visit Reasons: 6 mth breast check Intake Note: Pt presents to the office today for a 6 month follow up breast check. Pt states she is feeling well and has no concerns at this time. Allergies ibuprofen [IBUPROFEN] Allergy (Intermediate, Verified 09/03/23 09:03) SWELLING/HIVES, hives, oral swelling HPI HPI Comments History of Present Illness Details 53-year-old female patient returning for breast cancer follow-up examination. She is , breast fed her 1st 2 children. Her 3rd child was premature and was not breastfed. She denies a family history of breast cancer. Pathology from the ultrasound-guided core biopsy revealed: Breast, right 10:00 o'clock nodule, biopsy: Invasive ductal carcinoma, MSBR grade 2. Ductal carcinoma in situ, nuclear grade 2. ER/SD positive, HER2 Nazario negative, Ki-67 immunostaining 15%. 12/24/2021: Right breast lumpectomy with needle localization, sentinel node biopsy right axilla. Pathology confirmed invasive ductal carcinoma, grade 2, 1.4 cm with negative margins; ductal carcinoma in situ nuclear grade 2-3 focal necrosis, margins negative; 0/4 lymph nodes with metastatic disease. She was evaluated by Dr. Ortega Herrera; after checking Oncotype DX, chemotherapy was not recommended. Ovarian suppression with Lupron was initiated. She was also started on anastrozole. She completed radiation therapy and tolerated this well. She denies any further breast symptoms at this time. Screening mammogram performed at [facility] on 11/27/2022 revealed no suspicious findings with postop changes in the right axilla. Annual screening was recommended (BI-RADS 2). She feels well and denies any new breast symptoms. Genetic testing was performed on 09/03/2022. 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 Her cancer risk of ovarian cancer to the age of 82 was determined to be 5.8% verses 0.9% for the general population. She reports undergoing laparoscopic hysterectomy with oophorectomy. She denies any new breast symptoms in either breast. She is no longer on anastrozole and is now on exemestane. [facility] Medical History Ductal carcinoma in situ of right breast Infiltrating ductal carcinoma of right breast Hypertension Surgical History History of salpingo-oophorectomy History of lumpectomy of right breast (12/2021) History of Hx of cholecystectomy Family History Paternal Grandmother Cancer of unknown origin Social History Alcohol intake: never Patient Tobacco Use Status: Never used Tobacco Female Reproductive History Menstrual Age of Menarche: 14 Review of Systems Const Denies chills, Denies fever(s), Denies headache(s) and Denies poor appetite ENT Denies dizziness and Denies headache(s) Card Denies chest pain, Denies rapid heart rate, Denies palpitations and Denies slow heart rate Resp Denies chest congestion, Denies cough, Denies pain on inspiration and Denies wheezing GI Denies abdominal pain, Denies bloating, Denies change in stool character, Denies constipation, Denies diarrhea, Denies nausea, Denies vomiting and Denies hematemesis Denies nipple discharge Musc Denies back pain, Denies arthralgias, Denies joint swelling and Denies numbness Skin/Breast Denies breast skin changes, Denies breast pain, Denies breast mass, Denies change in breast shape, Denies change in pigmentation, Denies nipple discharge, Denies erythema and Denies rash Neuro Denies dizziness, Denies headache(s) and Denies numbness Psych Denies anxiety and Denies depression Endo Denies palpitations William/Lymph Denies easy bleeding, Denies easy bruising and Denies lymphadenopathy Aller/Immun Denies wheezing Physical Exam Vital Signs: Last Vital Signs Pulse 83 09/03/23 09:01 BP 144/87 H 09/03/23 09:01 Pulse Ox 100 09/03/23 09:01 Oxygen Delivery Method Room Air 09/03/23 09:01 BMI result Body Mass Index 48.5 Const General: no acute distress and well developed Nutritional Appearance: well nourished Orientation/consciousness: patient oriented x3 Limitations: no limitations HEENT Head: Yes normocephalic and Yes atraumatic Chest Other: Right breast with a well-healed incision in the upper outer quadrant without redness or discharge. No palpable mass, skin change, nipple discharge, or enlarged lymph nodes are appreciated. Radiation change noted in the right breast skin. No open wounds are appreciated. Left breast with no palpable mass, skin change, nipple discharge, or enlarged lymph nodes. Resp Effort & Inspection: normal respiratory effort, no audible wheezes, no cough and no respiratory distress GI Inspection: Yes normal to inspection Palpation (GI): Soft to palpation Skin General skin exam: no rashes or lesions noted Neuro General: patient oriented x3 Extrem General: Yes no clubbing, cyanosis or edema Assessment & Plan Assessment & Plan (1) Infiltrating ductal carcinoma of right breast: Code(s): C50.911 - Malignant neoplasm of unspecified site of right female breast (2) Ductal carcinoma in situ of right breast: Code(s): D05.11 - Intraductal carcinoma in situ of right breast (3) High risk of ovarian cancer: Code(s): Z91.89 - Other specified personal risk factors, not elsewhere classified Plan 53-year-old female patient presenting with a previous history of invasive ductal carcinoma with DCIS of the right breast status post lumpectomy and sentinel node biopsy. She was started on anastrozole but was switched to exemestane due to the side effects. She seems to be tolerating this well. Most recent mammogram of November 2022 revealed no new suspicious changes (BI-RADS 2). Annual screening is recommended. She did undergo hysterectomy oophorectomy at [facility]. Her family members have not undergone genetic testing however. Examination today revealed no suspicious findings in either breast. There is residual scar tissue noted in the upper outer quadrant of the right breast. She should follow up in 6 months, sooner p.r.n. Orders: Orders MM diagnostic mammo BI Today C50.911 - Malignant neoplasm of unspecified site of right female breast, D05.11 - Intraductal carcinoma in situ of right breast Coding Level of Care Code Est Pt Level 3 (49453) Diagnoses Infiltrating ductal carcinoma of right breast C50.911 Ductal carcinoma in situ of right breast D05.11 High risk of ovarian cancer Z91.89
[2023-09-03 09:01] VITALS: BP 144/87; PULSE 83; O2SAT 100; BMI 48.5
== END 2023-09-03 09:32 | disposition home or self-care (01) ==
PROVIDERS: PCP Internal Medicine; Visit Provider Surgery
DX: C50.911 Malignant neoplasm of unspecified site of right female breast (principal); Z91.89 Other specified personal risk factors, not elsewhere classified
CPT/HCPCS: 99213

== ENCOUNTER → 2023-09-03 08:59 | Outpatient (BNVA) | payer OTHER, SELFPAY | PROVIDERS: PCP Internal Medicine; Visit Provider Surgery ==

== ENCOUNTER 2023-12-16 14:16 | Outpatient (REF) | payer OTHER, SELFPAY ==
--- NOTE | ~2023-12-16 | MM_ITS ---
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 Patient also due for bilateral screening. COMPARISON: Mammography: 11/27/2022 ([facility]),11/24/2021, 12/05/2021, 12/11/2021, needle localization right breast 12/24/2021. Exams dating back to 2014. TECHNIQUE: Digital breast tomosynthesis is performed in both the craniocaudal and mediolateral oblique views along with computer-aided detection (CAD). Synthesized 2D images are generated from the tomosynthesis. In addition, 2-D spot magnification right CC views x1, and ML views x2 were also obtained of the lumpectomy site. FINDINGS: The breasts are heterogeneously dense, which may obscure small masses (ACR BI-RADS breast composition Category c). There are evolving postoperative changes in the right breast upper outer quadrant with overlying scar marker and stellate scarring. There are diffusely increased trabecular markings throughout the right breast, and associated skin thickening, consistent with post therapy changes slightly improved from 1 year prior. There is no evidence of recurrence of disease. No new masses or areas of architectural distortion. No suspicious calcifications. No axillary abnormalities. The left breast demonstrates no mass, architectural distortion, or suspicious calcification. Parenchymal pattern is unchanged from multiple prior exams. No skin or axillary abnormality. MM/MM tomosynthesis diagnostic BI IMPRESSION: There are no findings suspicious for malignancy in either breast. There are evolving expected post therapy changes in the right breast. Recommend diagnostic 1 year follow-up right breast for year 2 postop protocol. ASSESSMENT: BI-RADS BI-RADS 2 - Benign Findings RECOMMENDATION: 1 year F/U Results were provided to the patient at time of visit by the technologist. This patient's information was entered into a reminder system with a target due date for their next mammogram.
== END 2023-12-16 14:17 | disposition home or self-care (01) ==
LOC: HO.MAMMO 14:16
PROVIDERS: Visit Provider Surgery
DX: D05.11 Intraductal carcinoma in situ of right breast (principal)
CPT/HCPCS: 77062; 77066

== ENCOUNTER → 2023-12-16 14:30 | Outpatient (BNV) | payer OTHER, SELFPAY | PROVIDERS: Visit Provider Radiology Diagnostic Radiology | DX: Z85.3 Personal history of malignant neoplasm of breast (principal) | CPT/HCPCS: 77062; 77066 ==

== ENCOUNTER 2024-02-25 09:23 | Outpatient (AMB) | payer OTHER, SELFPAY ==
--- NOTE | 2024-02-25 09:26 | MHC.OFFVIS ---
Vital Signs 02/25/24 09:30 Height 5 ft 6 in Weight 301 lb BMI 48.6 BP 145/69 H Blood Pressure Location Rt brachial Position Sitting Pulse 74 Intake Visit Reasons: 6 mth breast check Intake Note: Patient is seen in office for 6 month follow up visit, breast exam. Pt c/o: reports no breast complaints at this time. mm:12/16/23 Web Editor Required: No Accompanied by: Self / Same As Patient Allergies ibuprofen [IBUPROFEN] Allergy (Intermediate, Verified 02/25/24 09:31) SWELLING/HIVES, hives, oral swelling Medication List - Last Reconciled 02/25/24 by Jin Ibanez MD exemestane 25 mg PO DAILY ferrous sulfate 325 mg PO BID losartan 50 mg PO BEDTIME zoledronic acid 4 mg IV [id number] HPI Comments Details: 53-year-old female patient returning for breast cancer follow-up examination. She is , breast fed her 1st 2 children. Her 3rd child was premature and was not breastfed. She denies a family history of breast cancer. Pathology from the ultrasound-guided core biopsy revealed: Breast, right 10:00 o'clock nodule, biopsy: Invasive ductal carcinoma, MSBR grade 2. Ductal carcinoma in situ, nuclear grade 2. ER/AK positive, HER2 Nazario negative, Ki-67 immunostaining 15%. 12/24/2021: Right breast lumpectomy with needle localization, sentinel node biopsy right axilla. Pathology confirmed invasive ductal carcinoma, grade 2, 1.4 cm with negative margins; ductal carcinoma in situ nuclear grade 2-3 focal necrosis, margins negative; 0/4 lymph nodes with metastatic disease. She was evaluated by Dr. Ortega Herrera; after checking Oncotype DX, chemotherapy was not recommended. Ovarian suppression with Lupron was initiated. She was also started on anastrozole but subsequently switched to exemestane. She completed radiation therapy and tolerated this well. Her most recent mammogram performed on 12/16/2023 revealed no mammographic evidence of malignancy (BI-RADS 2). Genetic testing was performed on 09/03/2022. 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 Her cancer risk of ovarian cancer to the age of 82 was determined to be 5.8% verses 0.9% for the general population. She underwent a laparoscopic hysterectomy with oophorectomy and is now off the Lupron. She denies any new breast symptoms in either breast. [facility] Medical History Ductal carcinoma in situ of right breast Infiltrating ductal carcinoma of right breast Hypertension Surgical History History of salpingo-oophorectomy History of lumpectomy of right breast (12/2021) History of Hx of cholecystectomy Family History Paternal Grandmother Cancer of unknown origin Social History Alcohol intake: never Patient Tobacco Use Status: Never used Tobacco Female Reproductive History Menstrual Age of Menarche: 14 Review of Systems Const All systems reviewed & are unremarkable except as noted in HPI and below Physical Exam Vital Signs: Last Vital Signs Pulse 74 02/25/24 09:30 BP 145/69 H 02/25/24 09:30 BMI result Body Mass Index 48.6 Const General: no acute distress and well developed Nutritional Appearance: well nourished Orientation/consciousness: patient oriented x3 Limitations: no limitations HEENT Head: Yes normocephalic and Yes atraumatic Chest Other: Right breast with a well-healed incision in the upper outer quadrant without redness or discharge. No palpable mass, skin change, nipple discharge, or enlarged lymph nodes are appreciated. No residual radiation changes noted. Left breast with no palpable mass, skin change, nipple discharge, or enlarged lymph nodes. Resp Effort & Inspection: normal respiratory effort, no audible wheezes, no cough and no respiratory distress GI Inspection: Yes normal to inspection Palpation (GI): Soft to palpation Skin General skin exam: no rashes or lesions noted Neuro General: patient oriented x3 Extrem General: Yes no clubbing, cyanosis or edema Assessment & Plan Assessment & Plan (1) Infiltrating ductal carcinoma of right breast: Code(s): C50.911 - Malignant neoplasm of unspecified site of right female breast Category: Medical (2) Ductal carcinoma in situ of right breast: Code(s): D05.11 - Intraductal carcinoma in situ of right breast Category: Medical (3) High risk of ovarian cancer: Code(s): Z91.89 - Other specified personal risk factors, not elsewhere classified Category: Medical Plan 53-year-old female patient presenting with a previous history of invasive ductal carcinoma with DCIS of the right breast status post lumpectomy and sentinel node biopsy. She was started on anastrozole but was switched to exemestane due to the side effects. She seems to be tolerating this well. Most recent mammogram of 12/16/2023 revealed no mammographic evidence of malignancy (BI-RADS 2). Follow-up mammogram in 1 year is recommended. She did undergo hysterectomy oophorectomy at [facility]. Examination today revealed no suspicious findings in either breast. She should follow up in 6 months, sooner p.r.n. Coding Level of Care Code Est Pt Level 3 (60268) Diagnoses Infiltrating ductal carcinoma of right breast C50.911 Ductal carcinoma in situ of right breast D05.11 High risk of ovarian cancer Z91.89
[2024-02-25 09:30] VITALS: BP 145/69; PULSE 74; BMI 48.6
== END 2024-02-25 09:41 | disposition home or self-care (01) ==
PROVIDERS: PCP Internal Medicine; Visit Provider Surgery
DX: C50.911 Malignant neoplasm of unspecified site of right female breast (principal); Z91.89 Other specified personal risk factors, not elsewhere classified
CPT/HCPCS: 99213

== ENCOUNTER → 2024-02-25 09:23 | Outpatient (BNVA) | payer OTHER, SELFPAY | PROVIDERS: PCP Internal Medicine; Visit Provider Surgery ==

== ENCOUNTER 2024-08-18 11:45 | Outpatient (AMB) | payer OTHER, SELFPAY ==
--- NOTE | 2024-08-18 11:49 | MHC.OFFVIS ---
Vital Signs 08/18/24 11:53 Height 5 ft 6 in Weight 313 lb BMI 50.5 BP 173/87 H Blood Pressure Location Lt brachial Position Sitting Pulse 74 Intake Visit Reasons: 6 mth breast check Intake Note: Patient is seen in office for 6 month follow up visit, breast exam. Pt c/o: denies any concerns regarding the breast Agricultural Adviser Required: No Accompanied by: Self / Same As Patient Allergies ibuprofen [IBUPROFEN] Allergy (Intermediate, Verified 08/18/24 12:01) SWELLING/HIVES, hives, oral swelling HPI Comments Details: 54-year-old female patient returning for breast cancer follow-up examination. She is , with no family history of breast cancer found to have a right breast invasive ductal carcinoma, grade 2, with DCIS, grade 2, ER/VA positive, HER2 Nazario negative, Ki-67 immunostaining 15%. She underwent a right breast lumpectomy with needle localization and right axillary sentinel node biopsy on 06/20/2022. Pathology confirmed an invasive ductal carcinoma grade 2, 1.4 cm with negative margins, ductal carcinoma in-situ, nuclear grade 2-3 with fat necrosis, negative margins, 0 of 4 lymph nodes with metastatic disease. She was evaluated by Dr. Ortega Herrera and after checking Oncotype DX, chemotherapy was not recommended. Ovarian suppression with Lupron was initiated. She was also started on anastrozole but subsequently switched to exemestane. She completed radiation therapy at [facility] and tolerated this well. Genetic testing was performed on 09/03/2022. 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 Her cancer risk of ovarian cancer to the age of 82 was determined to be 5.8% verses 0.9% for the general population. She underwent a laparoscopic salpingo-oophorectomy and is now off the Lupron. Her most recent mammogram performed on 12/16/2023 revealed no mammographic evidence of malignancy (BI-RADS 2). She is scheduled for her annual mammogram on 12/18/2024. She denies any new breast symptoms in either breast. [facility] Medical History Ductal carcinoma in situ of right breast Infiltrating ductal carcinoma of right breast Hypertension Surgical History History of salpingo-oophorectomy History of lumpectomy of right breast (12/2021) History of Hx of cholecystectomy Family History Paternal Grandmother Cancer of unknown origin Social History Alcohol intake: never Patient Tobacco Use Status: Never used Tobacco Female Reproductive History Menstrual Age of Menarche: 14 Review of Systems Const All systems reviewed & are unremarkable except as noted in HPI and below Physical Exam Const General: no acute distress and well developed Nutritional Appearance: well nourished Orientation/consciousness: patient oriented x3 Limitations: no limitations HEENT Head: Yes normocephalic and Yes atraumatic Chest Other: Right breast with a well-healed incision in the upper outer quadrant without redness or discharge. No palpable mass, skin change, nipple discharge, or enlarged lymph nodes are appreciated. No residual radiation changes noted. Left breast with no palpable mass, skin change, nipple discharge, or enlarged lymph nodes. Resp Effort & Inspection: normal respiratory effort, no audible wheezes, no cough and no respiratory distress GI Inspection: Yes normal to inspection Palpation (GI): Soft to palpation Skin General skin exam: no rashes or lesions noted Neuro Other: Mobility Assessment: 1. 3 meter assessment time (seconds): 5 2. Gait observations: Normal balance and gait General: patient oriented x3 Extrem General: Yes no clubbing, cyanosis or edema Assessment & Plan Assessment & Plan (1) Infiltrating ductal carcinoma of right breast: Code(s): C50.911 - Malignant neoplasm of unspecified site of right female breast Category: Medical (2) Ductal carcinoma in situ of right breast: Code(s): D05.11 - Intraductal carcinoma in situ of right breast Category: Medical (3) High risk of ovarian cancer: Code(s): Z91.89 - Other specified personal risk factors, not elsewhere classified Category: Medical Plan 54-year-old female patient presenting with a previous history of invasive ductal carcinoma with DCIS of the right breast status post lumpectomy and sentinel node biopsy. She was started on anastrozole but was switched to exemestane due to the side effects. She seems to be tolerating this well. Most recent mammogram of 12/16/2023 revealed no mammographic evidence of malignancy (BI-RADS 2). Follow-up mammogram in 1 year is scheduled for 12/18/2024. Examination today revealed no suspicious findings in either breast. She should follow up in 6 months, sooner p.r.n.. She will continue her follow-up with [facility]. Coding Level of Care Code Est Pt Level 3 (86458) Complex EM visit Add On G2211 Diagnoses Infiltrating ductal carcinoma of right breast C50.911 Ductal carcinoma in situ of right breast D05.11 High risk of ovarian cancer Z91.89
[2024-08-18 11:53] VITALS: BP 173/87; PULSE 74; BMI 50.5
== END 2024-08-18 12:03 | disposition home or self-care (01) ==
LOC: HO.HGS 11:45
PROVIDERS: PCP Internal Medicine; Visit Provider Surgery
DX: C50.911 Malignant neoplasm of unspecified site of right female breast (principal); Z91.89 Other specified personal risk factors, not elsewhere classified
CPT/HCPCS: 99213

== ENCOUNTER → 2024-08-18 11:45 | Outpatient (BNVA) | payer OTHER, SELFPAY | PROVIDERS: PCP Internal Medicine; Visit Provider Surgery ==

== ENCOUNTER 2024-12-18 10:22 | Outpatient (REF) | payer OTHER, SELFPAY ==
--- NOTE | ~2024-12-18 | MM_ITS ---
EXAMINATION: MM DIAGNOSTIC DIGITAL BREAST TOMOSYNTHESIS, BILATERAL CLINICAL INFORMATION: Right breast cancer in 2021 status post conservation therapy. COMPARISON: Mammography: Comparison is made with relevant prior exams. TECHNIQUE: Digital breast mammography with tomosynthesis is performed in both the craniocaudal and mediolateral oblique views along with computer-aided detection (CAD). FINDINGS: There are scattered areas of fibroglandular density (ACR BI-RADS breast composition Category b). Right post lumpectomy changes are stable. There are no significant masses, abnormal calcifications, or other abnormalities. Results are provided to the patient at time of visit by the technologist. MM/MM tomosynthesis diagnostic BI IMPRESSION: There are no significant changes from prior study. ASSESSMENT: BI-RADS BI-RADS 2 - Benign Findings RECOMMENDATION: 1 year F/U This patient's information was entered into a reminder system with a target due date for their next mammogram. Electronically signed by: Tamara Godfrey DO 12/18/2024 10:55 AM [facility]
--- OUTSIDE RECORDS SUMMARY | 2024-12-18 12:00 | XMS_ITS | Clinical Summary ---
Author Organization [facility] [address] [place] [address] [place] [phone] Phone Care Team Providers Care Materials Handler Name Role Phone Isabel Valentine MD Primary Care Provider [phone] Allergies Active Allergy Reactions Criticality Noted Date Comments Ibuprofen Hives 07/08/2015 swelling Other 07/08/2015 Sneezing, itching Medications exemestane (AROMASIN) 25 mg tablet Take 1 tablet (25 mg total) by mouth 1 (one) time each day 08/19/2023 Active LORATADINE ORAL Take by mouth daily as needed. Active zoledronic acid in sodium chloride 0.9 % 100 mL IVPB Inject 4 mg into the vein Every 6 Months. Oncology Active cholecalciferol (VITAMIN D-3) 25 mcg (1,000 unit) capsule Take 1 capsule (1,000 Units total) by mouth 1 (one) time each day. 09/21/2024 Active losartan (COZAAR) 50 mg tablet Take 1 tablet (50 mg total) by mouth at bedtime. 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 Morbid obesity with BMI of 40.0-44.9, adult 07/19 Invasive ductal carcinoma of breast, right 12/16 Overview (08/07/2024): 02/06 lumpectomy, RT, on anastrazole BRCA negative; BRIP positive Prediabetes 01/27/2021 Essential hypertension 08/05/2015 Iron deficiency anemia 07/29/2015 Allergic rhinitis 07/08/2015 Encounters Date Type Department Care Team Description 09/21/2024 8:30 AM EST Office Visit Adult Medicine [address] [phone] Jessica Mansfield PA Prediabetes (Primary Dx); Morbid obesity with BMI of 40.0-44.9, adult ([facility]); Essential hypertension; Invasive ductal carcinoma of breast, right ([facility]); Lipid screening; Vitamin D deficiency from Last 3 Months Immunizations Name Administration Dates Next Due Influenza Quadrivalent, 0.5m l, preservative free (Fluarix; FluLaval; Fluzone) ages 6mo and older (Afluria) 3yo and older 08/20/2022 Influenza trivalent, 0.5mL, preservative free (Fluarix; FluLaval; Fluzone) ages 6mo and older (Afluria) 3 years and older 08/18/2023,08/16/2022,08/15/2021,2014 Influenza trivalent, with preservative (Fluzone; Afluria) 6mo and older 08/18/2023,08/15/2021,07/08/2015 Influenza, Unspecified 08/15/2021 Pfizer (ages 12 & older) Biv alent, COVID-19 08/20/2022 Romotive Covid-19 Bivalent, Or iginal + Ba.1 (Non-US Trademark [employer]ootsieIR[employer] Kid Bivalent) 08/20/2022 Romotive SARS-CoV-2 COVID-19, mRNA, LNP-S, preservative free 08/15/2021 SARS-COV-2 (COVID-19) Vaccin e, Unspecified 09/17/2023 Tdap Tetanus diptheria acell ular pertussis (Boostrix; Adacel) 7yo and older 07/08/2015 Surgical History Surgery Date Site/Laterality Comments OTHER SURGICAL HISTORY 11/2022 PROCEDURE: OUTSIDE MAMMO SECTION PROCEDURE: HISTORICAL DELIVERY COLONOSCOPY 11/26/2015 PROCEDURE: HISTORICAL COLONOSCOPY; COMMENT: [facility] - sigmoid diverticulosis, otherwise normal. CHOLECYSTECTOMY 03/2019 PROCEDURE: HISTORICAL CHOLECYSTECTOMY BREAST LUMPECTOMY 01/2022 Right PROCEDURE: HISTORICAL BREAST LUMPECTOMY; COMMENT: breast cancer Medical History Medical History Date Comments Allergic rhinitis 07/08/2015 DX:Allergic rh initis Iron deficiency anemia 07/29/2015 DX:Iron d eficiency anemia Essential hypertension 08/05/2015 DX:Essent ial hypertension Family History Medical History Relation Name Comments Diabetes Brother x 2 Coronary artery disease Father diab etes, hypertension Other: pagets disease Mother Other: sudden Paternal Grandfather Uterine cancer Paternal Grandmother Other: psoriasis Sister x 2 PCOS, psori atic arthritis Relation Name Status Comments Brother x 2 Alive Father Alive Maternal Grandfather Maternal Grandmother Mother Alive Paternal Grandfather Paternal Grandmother Sister x 2 Alive Social History Tobacco Use Types Packs/Day Years Used Date Smoking Tobacco: Never Smokeless Tobacco: Never Alcohol Use Standard Drinks/Week Comments Not Currently 0 (1 standard drink = 0.6 oz pur e alcohol) Comments Unknown Sex and Gender Information Value Date Recorded Sex Assigned at Not on file Legal Sex Female 9:03 PM EST Gender Identity Not on file Sexual Orientation Not on file Obstetrics History Last Filed Vital Signs Vital Sign Reading Time Taken Comments Blood Pressure 132/78 09/21/2024 8:16 AM EST Pulse 72 09/21/2024 8:16 AM EST Temperature - - Respiratory Rate - - Oxygen Saturation 100% 09/21/2024 8:16 AM EST Inhaled Oxygen Concentration - - Weight 139 kg (306 lb 4.8 oz) 09/21/2024 8:16 AM EST Height 167.6 cm (5' 6 ) 03/22/2024 8:19 AM EDT Body Mass Index 49.44 03/22/2024 8:19 AM EDT Plan of Treatment Upcoming Encounters Date Type Department Care Team (Late st Contact Info) Description 03/22/2025 8:15 AM EDT Office Visit Adult Medicine [facility] [address], [place] [phone] Isabel Valentine MD [address] [place] [address] Health Maintenance Due Date Last Done Comments Hepatitis B Vaccines (1 of 3 - 19+ 3-dose series) 1991 Pneumococcal Vaccine: 50+ Years (1 of 2 - PCV) 1991 Pneumococcal Vaccine: Pediatrics (0 to 5 Years) and At-Risk Patients (6 to 64 Years) (1 of 2 - PCV) 1991 Zoster Vaccines (1 of 2) 1991 Depression Screening 09/19/2022 HIV Screening 09/19/2022 Social Influencers of Health Screening 09/19/2022 COVID-19 Vaccine ( season) 2024 09/17/2023, 08/20/2022, 08/15/2021, Additional history exists Influenza Vaccine (#1) 2024 , 08/18/2023, 08/20/2022, Additional history exists Cervical Cancer Screening: Pap Smear 10/28/2024 10/28/2021 DTaP,Tdap,and Td Vaccines (2 - Td or Tdap) 07/08/2025 07/08/2015 Hypertension/CHF/CAD Annual BMP Blood Test 09/21/2025 09/21/2024, 09/20/2023 Colorectal Cancer Screening: Colonoscopy 11/26/2025 11/26/2015 Breast Cancer Screening 12/15/2025 12/16/2023 Cholesterol Screening (Lipid Panel) 09/21/2029 09/21/2024, 04/27/2022 Hepatitis C Screening Completed 09/20/2023 HIB Vaccines Aged Out No longer eligi ble based on patient's age to complete this topic HPV Vaccines Aged Out No longer eligi ble based on patient's age to complete this topic Hepatitis A Vaccines Aged Out No long er eligible based on patient's age to complete this topic IPV Vaccines Aged Out No longer eligi ble based on patient's age to complete this topic MMR Vaccines Aged Out No longer eligi ble based on patient's age to complete this topic Meningococcal ACWY Vaccine Aged Out N o longer eligible based on patient's age to complete this topic Meningococcal B Vacine Aged Out No lo nger eligible based on patient's age to complete this topic RSV Immunization Patients Under 20 months Aged Out No longer eligible based on patient's age to complete this topic Varicella Vaccines Aged Out No longer eligible based on patient's age to complete this topic Procedures Procedure Name Priority Date/Time Associated Diagnosis Comments MICROALBUMIN CREATININE URINE RATIO Routine 09/21/2024 8:47 AM EST Prediabetes COMPREHENSIVE METABOLIC PANEL Routine 09/21/2024 8:47 AM EST Essential hypertension HEMOGLOBIN A1C Routine 09/21/2024 8:47 AM EST Prediabetes LIPID PANEL WITH REFLEX TO DIRECT LDL Routine 09/21/2024 8:47 AM EST Lipid screening VITAMIN D 25 HYDROXY Routine 09/21/2024 8:47 AM EST Vitamin D deficiency HM HEPATITIS C SCREENING Routine 09/20/2023 HM PAP SMEAR Routine 10/28/2021 HM COLONOSCOPY Routine 11/26/2015 from Last 3 Months or Most Recently Relevant to Health Maintenance Results * (ABNORMAL) Lipid panel with reflex to direct LDL (09/21/2024 8:47 AM EST) Cholesterol 222(H) 0 - 200 mg/dL LAB CHEMISTRY METHOD 09/21/2024 10:[address] [facility] Triglycerides 70 0 - 150 mg/dL LAB CHEMISTRY METHOD 09/21/2024 10:[address] [facility] HDL 68 >=40 mg/dL LAB CHEMISTRY METHOD 09/21/2024 10:[address] [facility] LDL Calculated 140(H) 0 - 100 mg/dL LAB CHEMISTRY METHOD 09/21/2024 10:[address] [facility] VLDL Cholesterol Duglas 14 mg/dL LAB CHEMISTRY METHOD 09/21/2024 10:[address] [facility] Non HDL Chol. (LDL+VLDL) 154(H) <145 mg/dL LAB CHEMISTRY METHOD 09/21/2024 10:[address] [facility] Chol/HDL Ratio 3.3 0.0 - 4.4 LAB CHEMISTRY METHOD 09/21/2024 10:11 AM EST [facility] Blood Venous blood specimen / Unknown Venipuncture / Unknown 09/21/2024 8:47 AM EST 09/21/2024 8:47 AM EST us Jessica SIDHU LAB BLOOD ORDERABLES Final Re sult Performing Organization Address City/[facility]/ZIP Co de Phone Number [facility] [address] [place] [address], [place] [phone] * Microalbumin creatinine urine ratio (09/21/2024 8:47 AM EST) Creatinine, Urine 32.0 mg/dL LAB CHEMISTRY METHOD 09/21/2024 10:[address] [facility] Microalb, Ur 6.8 0.0 - 29.0 mg/L LAB CHEMISTRY METHOD 09/21/2024 10:[address] [facility] Microalb/Creat Ratio 21 <30 mg/g creat LAB CHEMISTRY METHOD 09/21/2024 10:[address] [facility] Urine Urine specimen from urethra / Unknown Non-blood Collection / Unknown 09/21/2024 8:47 AM EST 09/21/2024 8:47 AM EST us Jessica SIDHU LAB URINE ORDERABLES Final Re sult Performing Organization Address City/[facility]/ZIP Co de Phone Number [facility] [address] [place] [address], [place] [phone] * (ABNORMAL) Vitamin D 25 hydroxy (09/21/2024 8:47 AM EST) Vit D, 25-Hydroxy 29.8(L) 30.0 - 80.0 ng/mL LAB CHEMISTRY METHOD 09/21/2024 10:19 AM EST [facility] Blood Venous blood specimen / Unknown Venipuncture / Unknown 09/21/2024 8:47 AM EST 09/21/2024 8:47 AM EST us Jessica SIDHU LAB BLOOD ORDERABLES Final Re sult [facility] [address] [place] [address], [place] [phone] * Hemoglobin A1c (09/21/2024 8:47 AM EST) Pathologist [facility] Hemoglobin A1C 5.1 <6.5 % LAB CHEMISTRY METHOD 09/21/2024 11:40 AM EST [facility] Mean Bld Glu Estim. 100 mg/dL LAB CHEMISTRY METHOD 09/21/2024 11:[address] [facility] Blood Venous blood specimen / Unknown Venipuncture / Unknown 09/21/2024 8:47 AM EST 09/21/2024 8:47 AM EST us Jessica SIDHU LAB BLOOD ORDERABLES Final Re sult Performing Organization Address City/[facility]/ZIP Co de Phone Number [facility] [address] [place] [address], [place] [phone] * (ABNORMAL) Comprehensive metabolic panel (09/21/2024 8:47 AM EST) Pathologist [facility] Sodium 138 133 - 145 mmol/L LAB CHEMISTRY METHOD 09/21/2024 10:[address] [facility] Potassium 4.2 3.5 - 5.5 mmol/L LAB CHEMISTRY METHOD 09/21/2024 10:[address] [facility] Chloride 103 96 - 110 mmol/L LAB CHEMISTRY METHOD 09/21/2024 10:[address] [facility] CO2 30 21 - 32 mmol/L LAB CHEMISTRY METHOD 09/21/2024 10:[address] [facility] Anion Gap 5 3 - 11 LAB CHEMISTRY METHOD 09/21/2024 10:[address] [facility] Glucose 106(H) 70 - 100 mg/dL LAB CHEMISTRY METHOD 09/21/2024 10:[address] [facility] BUN 15 5 - 25 mg/dL LAB CHEMISTRY METHOD 09/21/2024 10:[address] [facility] Creatinine 0.90 0.50 - 1.10 mg/dL LAB CHEMISTRY METHOD 09/21/2024 10:[address] [facility] eGFR 77 >=60 mL/min/1. 73m2 LAB CHEMISTRY METHOD 09/21/2024 10:[address] [facility] Comment:Calculation based on the??Chronic Kidney Disease Epidemiology Collaboration (CKD-EPI) equation refit??without adjustment for race. BUN/Creatinine Ratio 16.7 LAB CHEMISTRY METHOD 09/21/2024 10:[address] [facility] Calcium 9.9 8.5 - 10.5 mg/dL LAB CHEMISTRY METHOD 09/21/2024 10:[address] [facility] AST (SGOT) 30 10 - 42 unit/L LAB CHEMISTRY METHOD 09/21/2024 10:[address] [facility] ALT (SGPT) 47 10 - 60 unit/L LAB CHEMISTRY METHOD 09/21/2024 10:[address] [facility] Alkaline Phosphatase 78 42 - 121 unit/L LAB CHEMISTRY METHOD 09/21/2024 10:[address] [facility] Total Protein 7.9 6.0 - 8.0 g/dL LAB CHEMISTRY METHOD 09/21/2024 10:[address] [facility] Albumin 4.3 3.2 - 5.0 g/dL LAB CHEMISTRY METHOD 09/21/2024 10:[address] [facility] Total Bilirubin 0.7 0.0 - 1.4 mg/dL LAB CHEMISTRY METHOD 09/21/2024 10:[address] [facility] Blood Venous blood specimen / Unknown Venipuncture / Unknown 09/21/2024 8:47 AM EST 09/21/2024 8:47 AM EST Jessica SIDHU LAB BLOOD ORDERABLES Final Re sult [facility] [address] [place] [address], [place] [phone] * Hepatitis C Screening (09/20/2023) Hepatitis C Screening ABSTRACTED Historical Provider MD HEALTH MAINTENANCE Final Result * Pap Smear (10/28/2021) Pap smear no interpretation , abstracted Historical Provider HEALTH MAINTENANCE Final Result * Colonoscopy (11/26/2015) Colonoscopy no interpretation , abstracted Anatomical Region Laterality Modality Other Historical Provider HEALTH MAINTENANCE Final Result from Last 3 Months or Most Recently Relevant to Health Maintenance Insurance [facility] Care Teams Materials Handler Relationship Specialty Start Date End Date Isabel Valentine MD [address] [place] [address] PCP - General Internal Medicine 04/11/15
== END 2024-12-18 10:23 | disposition home or self-care (01) ==
LOC: HO.MAMMO 10:22
PROVIDERS: Absent Provider Internal Medicine; PCP Internal Medicine; Visit Provider Nurse Practitioner Adult Health
DX: Z85.3 Personal history of malignant neoplasm of breast (principal)
CPT/HCPCS: 77062; 77066

== ENCOUNTER → 2024-12-18 10:30 | Outpatient (BNV) | payer OTHER, SELFPAY | PROVIDERS: Absent Provider Internal Medicine; PCP Internal Medicine; Visit Provider Internal Medicine | DX: Z85.3 Personal history of malignant neoplasm of breast (principal); R92.323 Mammographic fibroglandular density, bilateral breasts | CPT/HCPCS: 77062; 77066 ==

== ENCOUNTER 2025-02-23 09:37 | Outpatient (AMB) | payer OTHER, SELFPAY ==
--- NOTE | 2025-02-23 09:38 | MHC.OFFVIS ---
Vital Signs 02/23/25 09:43 Height 5 ft 6 in Weight 318 lb BMI 51.3 BP 152/74 H Blood Pressure Location Lt brachial Position Sitting Pulse 78 Intake Visit Reasons: 6 mth breast exam Intake Note: Patient is seen in office for 6 month follow up visit, breast exam. Pt c/o: denies any concerns at the time of visit mm:12/18/24 Project Account Manager Required: No Accompanied by: Self / Same As Patient Allergies ibuprofen [IBUPROFEN] Allergy (Intermediate, Verified 02/23/25 09:43) SWELLING/HIVES, hives, oral swelling HPI Comments Details: 54-year-old female patient returning for breast cancer follow-up examination. She is , with no family history of breast cancer found to have a right breast invasive ductal carcinoma, grade 2, with DCIS, grade 2, ER/NH positive, HER2 Nazario negative, Ki-67 immunostaining 15%. She underwent a right breast lumpectomy with needle localization and right axillary sentinel node biopsy on 06/20/2022. Pathology confirmed an invasive ductal carcinoma grade 2, 1.4 cm with negative margins, ductal carcinoma in-situ, nuclear grade 2-3 with fat necrosis, negative margins, 0 of 4 lymph nodes with metastatic disease. She was evaluated by Dr. Ortega Herrera and after checking Oncotype DX, chemotherapy was not recommended. Ovarian suppression with Lupron was initiated. She was also started on anastrozole but subsequently switched to exemestane. She completed radiation therapy at [facility] and tolerated this well. Genetic testing was performed on 09/03/2022. 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 Her cancer risk of ovarian cancer to the age of 80 was determined to be 5.8% verses 0.9% for the general population. She underwent a laparoscopic salpingo-oophorectomy and is now off the Lupron. Her most recent mammogram performed on 12/18/2024 revealed no mammographic evidence of malignancy (BI-RADS 2). She is scheduled for her annual mammogram on 12/18/2024. She denies any new breast symptoms in either breast. [facility] Medical History Ductal carcinoma in situ of right breast Infiltrating ductal carcinoma of right breast Hypertension Surgical History History of salpingo-oophorectomy History of lumpectomy of right breast (12/2021) History of Hx of cholecystectomy Family History Paternal Grandmother Cancer of unknown origin Social History Alcohol intake: never Patient Tobacco Use Status: Never used Tobacco Female Reproductive History Menstrual Age of Menarche: 14 Review of Systems Const All systems reviewed & are unremarkable except as noted in HPI and below Physical Exam Vital Signs: Last Vital Signs Pulse 78 02/23/25 09:43 BP 152/74 H 02/23/25 09:43 BMI result Body Mass Index 51.3 Const General: no acute distress and well developed Nutritional Appearance: well nourished Orientation/consciousness: patient oriented x3 Limitations: no limitations HEENT Head: Yes normocephalic and Yes atraumatic Chest Other: Right breast with a well-healed incision in the upper outer quadrant without redness or discharge. No palpable mass, skin change, nipple discharge, or enlarged lymph nodes are appreciated. No residual radiation changes noted. Left breast with no palpable mass, skin change, nipple discharge, or enlarged lymph nodes. Resp Effort & Inspection: normal respiratory effort, no audible wheezes, no cough and no respiratory distress GI Inspection: Yes normal to inspection Palpation (GI): Soft to palpation Skin General skin exam: no rashes or lesions noted Neuro Other: Mobility Assessment: 1. 3 meter assessment time (seconds): 6 2. Gait observations: Normal balance and gait General: patient oriented x3 Extrem General: Yes no clubbing, cyanosis or edema Assessment & Plan Assessment & Plan (1) Infiltrating ductal carcinoma of right breast: Code(s): C50.911 - Malignant neoplasm of unspecified site of right female breast Category: Medical (2) Ductal carcinoma in situ of right breast: Code(s): D05.11 - Intraductal carcinoma in situ of right breast Category: Medical (3) High risk of ovarian cancer: Code(s): Z91.89 - Other specified personal risk factors, not elsewhere classified Category: Medical Plan 54-year-old female patient presenting with a previous history of invasive ductal carcinoma with DCIS of the right breast status post lumpectomy and sentinel node biopsy. She was started on anastrozole but was switched to exemestane due to the side effects. She seems to be tolerating this well. Most recent mammogram of 12/18/2024 revealed no mammographic evidence of malignancy (BI-RADS 2). Routine follow-up in 1 year is recommended. Examination today revealed no suspicious findings in either breast. She should follow up in 6 months, sooner p.r.n.. She will continue her follow-up with [facility]. Coding Level of Care Code Est Pt Level 3 (89074) Complex EM visit Add On G2211 Diagnoses Infiltrating ductal carcinoma of right breast C50.911 Ductal carcinoma in situ of right breast D05.11 High risk of ovarian cancer Z91.89
[2025-02-23 09:43] VITALS: BP 152/74; PULSE 78; BMI 51.3
--- OUTSIDE RECORDS SUMMARY | 2025-02-23 09:58 | XMS_ITS | Clinical Summary ---
Author Organization [facility] [address] [place] [address] [place] [phone] Phone Care Team Providers Care Delinquency Prevention Officer Name Role Phone Isabel Valentine MD Primary Care Provider [phone] Allergies Active Allergy Reactions Criticality Noted Date [...] total) by mouth at bedtime. 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 V24, [facility] V28) 08/07/2024 Invasive ductal carcinoma of breast, right ([facility] V24, [facility] V28) 12/16/2021 Overview (08/07/2024): 02/06 lumpectomy, RT, on anastrazole BRCA negative; BRIP positive Prediabetes 01/27/2021 Essential hypertension 08/05/2015 Iron deficiency anemia 07/29/2015 Allergic rhinitis 07/08/2015 Immunizations Name Administration Dates Next Due Influenza [...] 12 & older) Biv alent, COVID-19 08/20/2022 [employer] Covid-19 Bivalent, Or iginal + Ba.1 (Non-US Trademark ProformativeIRProtoGeo Bivalent) 08/20/2022 [employer] SARS-CoV-2 COVID-19, mRNA, LNP-S, preservative free 08/15/2021 SARS-COV-2 (COVID-19) Vaccin e, Unspecified 09/17/2023 Tdap Tetanus diptheria acell ular pertussis (Boostrix; Adacel) 7yo and older 07/08/2015 Surgical History Surgery Date Site/Laterality Comments OTHER SURGICAL HISTORY 11/2022 PROCEDURE: OUTSIDE MAMMO SECTION PROCEDURE: HISTORICAL DELIVERY COLONOSCOPY 11/26/2015 PROCEDURE: HISTORICAL COLONOSCOPY; COMMENT: [facility] - sigmoid diverticulosis, otherwise normal. CHOLECYSTECTOMY [...] 8:15 AM EDT Office Visit Adult Medicine [address] [phone] Isabel Valentine MD [address] [place] [phone] Health Maintenance Due Date Last Done Comments [...] 2024 09/17/2023, 08/20/2022, 08/15/2021, Additional history exists Cervical Cancer Screening: Pap Smear 10/28/2024 10/28/2021 Influenza Vaccine (Season Ended) 2025 08/18/2023, 08/18/2023, 08/20/2022, Additional history exists DTaP,Tdap,and Td Vaccines (2 - Td or [...] age to complete this topic Meningococcal B Vaccine Aged Out No l onger eligible based on patient's age to complete this topic RSV Immunization Patients Under 20 months Aged Out No longer eligible based on patient's age to complete this topic Varicella Vaccines Aged Out No longer eligible based on patient's age to complete this topic Procedures Procedure Name Priority Date/Time Associated Diagnosis Comments COMPREHENSIVE METABOLIC PANEL Routine 09/21/2024 8:47 AM EST Essential hypertension LIPID PANEL WITH REFLEX TO DIRECT LDL Routine 09/21/2024 8:47 AM EST Lipid screening HEPATITIS C SCREENING Routine 09/20/2023 PAP SMEAR Routine 10/28/2021 COLONOSCOPY Routine 11/26/2015 from Last 3 Months or Most Recently Relevant to Health Maintenance Results * (ABNORMAL) Lipid panel with reflex to direct LDL (09/21/2024 8:47 AM EST) Cholesterol 222(H) 0 - 200 mg/dL LAB CHEMISTRY METHOD 09/21/2024 10:11 AM EST [facility] Triglycerides 70 0 - 150 mg/dL LAB CHEMISTRY METHOD 09/21/2024 10:11 AM EST [facility] HDL 68 >=40 mg/dL LAB CHEMISTRY METHOD 09/21/2024 10:[address] [facility] LDL Calculated 140(H) 0 - 100 mg/dL LAB CHEMISTRY METHOD 09/21/2024 10:[address] [facility] VLDL Cholesterol Duglas 14 mg/dL LAB CHEMISTRY METHOD 09/21/2024 10:[address] [facility] Non HDL Chol. (LDL+VLDL) 154(H) <145 mg/dL LAB CHEMISTRY METHOD 09/21/2024 10:11 AM EST [facility] Chol/HDL Ratio 3.3 0.0 - 4.4 LAB CHEMISTRY METHOD 09/21/2024 10:[address] [facility] Blood Venous blood specimen / Unknown Venipuncture / Unknown 09/21/2024 8:47 AM EST 09/21/2024 8:47 AM EST us Jessica SIDHU LAB BLOOD ORDERABLES Final Re sult [facility] [address] [place] [address], * (ABNORMAL) Comprehensive metabolic panel (09/21/2024 8:47 AM EST) Sodium 138 133 - 145 mmol/L LAB CHEMISTRY METHOD 09/21/2024 10:[address] [facility] Potassium 4.2 3.5 - 5.5 mmol/L LAB CHEMISTRY METHOD 09/21/2024 10:[address] [facility] Chloride 103 96 - 110 mmol/L LAB CHEMISTRY METHOD 09/21/2024 10:[address] [facility] CO2 30 21 - 32 mmol/L LAB CHEMISTRY METHOD 09/21/2024 10:[address] [facility] Anion Gap 5 3 - 11 LAB CHEMISTRY METHOD 09/21/2024 10:[address] [facility] Glucose 106(H) 70 - 100 mg/dL LAB CHEMISTRY METHOD 09/21/2024 10:[address] [facility] BUN 15 5 - 25 mg/dL LAB CHEMISTRY METHOD 09/21/2024 10:[address] [facility] Creatinine 0.90 0.50 - 1.10 mg/dL LAB CHEMISTRY METHOD 09/21/2024 10:[address] [facility] eGFR 77 >=60 mL/min/1. 73m2 LAB CHEMISTRY METHOD 09/21/2024 10:[address] [facility] Comment:Calculation based on the??Chronic Kidney Disease Epidemiology Collaboration (CKD-EPI) equation refit??without adjustment for race. BUN/Creatinine Ratio 16.7 LAB CHEMISTRY METHOD 09/21/2024 10:[address] [facility] Calcium 9.9 8.5 - 10.5 mg/dL LAB CHEMISTRY METHOD 09/21/2024 10:[address] [facility] AST (SGOT) 30 10 - 42 unit/L LAB CHEMISTRY METHOD 09/21/2024 10:[address] [facility] ALT (SGPT) 47 10 - 60 unit/L LAB CHEMISTRY METHOD 09/21/2024 10:[address] [facility] Alkaline Phosphatase 78 42 - 121 unit/L LAB CHEMISTRY METHOD 09/21/2024 10:11 AM EST [facility] Total Protein 7.9 6.0 - 8.0 g/dL LAB CHEMISTRY METHOD 09/21/2024 10:11 AM EST [facility] Albumin 4.3 3.2 - 5.0 g/dL LAB CHEMISTRY METHOD 09/21/2024 10:[address] [facility] Total Bilirubin 0.7 0.0 - 1.4 mg/dL LAB CHEMISTRY METHOD 09/21/2024 10:11 AM EST [facility] Blood Venous blood specimen / Unknown Venipuncture / Unknown 09/21/2024 8:47 AM EST 09/21/2024 8:47 AM EST Jessica SIDHU LAB BLOOD ORDERABLES Final Re sult [facility] [address] [place] [address], * Hepatitis C Screening (09/20/2023) Hepatitis C Screening ABSTRACTED Historical Provider HEALTH MAINTENANCE Final Result * Pap Smear (10/28/2021) Pap smear no interpretation , abstracted Historical Provider HEALTH MAINTENANCE Final Result * Colonoscopy (11/26/2015) Pathologist [facility] Colonoscopy no interpretation , abstracted Anatomical Region Laterality Modality Other Historical Provider HEALTH MAINTENANCE Final Result from Last 3 Months or Most Recently Relevant to Health Maintenance Insurance [employer] Care Teams Delinquency Prevention Officer Relationship Specialty Start Date End Date Isabel Valentine MD [address] [place] [id number] PCP - General Internal Medicine 04/11/15
== END 2025-02-23 09:57 | disposition home or self-care (01) ==
LOC: HO.HGS 09:38
PROVIDERS: PCP Internal Medicine; Visit Provider Surgery
DX: C50.911 Malignant neoplasm of unspecified site of right female breast (principal); Z91.89 Other specified personal risk factors, not elsewhere classified
CPT/HCPCS: 99213

== ENCOUNTER 2025-09-10 08:49 | Outpatient (AMB) | payer OTHER, SELFPAY ==
--- NOTE | 2025-09-10 08:51 | MHC.OFFVIS ---
Vital Signs 09/10/25 08:59 Height 5 ft 6 in Weight 317 lb BMI 51.2 BP 149/71 H Blood Pressure Location Lt brachial Position Sitting Pulse 77 Intake Visit Reasons: 6 month breast exam Intake Note: Patient is seen in office for 6 month follow up visit, breast exam. Pt c/o: denies any concerns mm sched: 12/21/24 @8:45am [employer] Required: No Accompanied by: Self / Same As Patient Allergies ibuprofen (IBUPROFEN) Allergy (Intermediate, Verified 09/10/25 08:52) SWELLING/HIVES, hives, oral swelling HPI Comments Details: 55-year-old female patient returning for breast cancer follow-up examination. She is , with no family history of breast cancer found to have a right breast invasive ductal carcinoma, grade 2, with DCIS, grade 2, ER/TN positive, HER2 Nazario negative, Ki-67 immunostaining 15%. She underwent a right breast lumpectomy with needle localization and right axillary sentinel node biopsy on 06/20/2022. Pathology confirmed an invasive ductal carcinoma grade 2, 1.4 cm with negative margins, ductal carcinoma in-situ, nuclear grade 2-3 with fat necrosis, negative margins, 0 of 4 lymph nodes with metastatic disease. She was evaluated by Dr. Ortega Herrera and after checking Oncotype DX, chemotherapy was not recommended. Ovarian suppression with Lupron was initiated. She was also started on anastrozole but subsequently switched to exemestane. She completed radiation therapy at [facility] and tolerated this well. Genetic testing was performed on 09/03/2022. 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 Her cancer risk of ovarian cancer to the age of 80 was determined to be 5.8% verses 0.9% for the general population. She underwent a laparoscopic salpingo-oophorectomy and is now off the Lupron. Her most recent mammogram performed on 12/18/2024 revealed no mammographic evidence of malignancy (BI-RADS 2). She is scheduled for her annual mammogram on 12/21/2025. She denies any new breast symptoms in either breast. [facility] Medical History Ductal carcinoma in situ of right breast Infiltrating ductal carcinoma of right breast Hypertension Surgical History History of salpingo-oophorectomy History of lumpectomy of right breast (12/2021) History of Hx of cholecystectomy Family History Paternal Grandmother Cancer of unknown origin Social History Alcohol intake: never Patient Tobacco Use Status: Never used Tobacco Female Reproductive History Menstrual Age of Menarche: 14 Review of Systems Const All systems reviewed & are unremarkable except as noted in HPI and below Physical Exam Const General: no acute distress and well developed Nutritional Appearance: well nourished Orientation/consciousness: patient oriented x3 Limitations: no limitations HEENT Head: Yes normocephalic and Yes atraumatic Chest Other: Right breast with a well-healed incision in the upper outer quadrant without redness or discharge. No palpable mass, skin change, nipple discharge, or enlarged lymph nodes are appreciated. No residual radiation changes noted. Left breast with no palpable mass, skin change, nipple discharge, or enlarged lymph nodes. Chest/axillae images:  1. Incision right breast upper outer quadrant Resp Effort & Inspection: normal respiratory effort, no audible wheezes, no cough and no respiratory distress GI Inspection: Yes normal to inspection Palpation (GI): Soft to palpation Skin General skin exam: no rashes or lesions noted Neuro Other: Mobility Assessment: 1. 3 meter assessment time (seconds): 6 2. Gait observations: Normal balance and gait General: patient oriented x3 Extrem General: Yes no clubbing, cyanosis or edema Assessment & Plan Assessment & Plan (1) Infiltrating ductal carcinoma of right breast: Code(s): C50.911 - Malignant neoplasm of unspecified site of right female breast Category: Medical (2) Ductal carcinoma in situ of right breast: Code(s): D05.11 - Intraductal carcinoma in situ of right breast Category: Medical (3) High risk of ovarian cancer: Code(s): Z91.89 - Other specified personal risk factors, not elsewhere classified Category: Medical Plan 55-year-old female patient presenting with a previous history of invasive ductal carcinoma with DCIS of the right breast status post lumpectomy and sentinel node biopsy. She was started on anastrozole but was switched to exemestane due to the side effects. She seems to be tolerating this well. Most recent mammogram of 12/18/2024 revealed no mammographic evidence of malignancy (BI-RADS 2). Routine follow-up in 1 year is recommended. Examination today revealed no suspicious findings in either breast. She should follow up in 6 months, sooner p.r.n.. She will continue her follow-up with [facility]. Coding Level of Care Code Complex visit Add On G2211 Diagnoses Infiltrating ductal carcinoma of right breast C50.911 Ductal carcinoma in situ of right breast D05.11 High risk of ovarian cancer Z91.89
[2025-09-10 08:59] VITALS: BP 149/71; PULSE 77; BMI 51.2
--- OUTSIDE RECORDS SUMMARY | 2025-09-10 09:21 | XMS_ITS | Clinical Summary ---
Author Organization [facility] [address] [place] [address] [place] [phone] Phone Care Team Providers Care Iuss Analyst Name Role Phone Isabel Valentine MD Primary Care Provider [phone] Allergies Active Allergy Reactions Criticality Noted Date [...] total) by mouth at bedtime. 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 Morbid obesity with BMI of 4 0.0-44.9, adult ([facility] V24, [facility] V28) 08/07/2024 Invasive ductal carcinoma of breast, right ([facility] V24, [facility] V28) 12/16/2021 Overview (08/07/2024): 02/06 lumpectomy, RT, on anastrazole BRCA negative; BRIP positive Prediabetes 01/27/2021 Essential hypertension 08/05/2015 Iron deficiency anemia 07/29/2015 Allergic rhinitis 07/08/2015 Immunizations Immunization Administration Dates Next Due Influenza Quadrivalent, 0.5m l, preservative free (Fluarix; FluLaval; Fluzone) ages 6mo and older (Afluria) 3yo and older 08/20/2022 Influenza trivalent, 0.5mL, preservative free (Fluarix; FluLaval; Fluzone) ages 6mo and older (Afluria) 3 years and older 08/18/2023,08/16/2022,08/15/2021,2014 Influenza trivalent, with preservative (Fluzone; Afluria) 6mo and older 08/18/2023,08/15/2021,07/08/2015 Influenza, Unspecified 08/15/2021 Pfizer (ages 12 & older) Biv alent, COVID-19 08/20/2022 [employer] Covid-19 Bivalent, Or iginal + Ba.1 (Non-US Trademark [employer] Bivalent) 08/20/2022 [employer] SARS-CoV-2 COVID-19, mRNA, LNP-S, preservative free 08/15/2021 SARS-COV-2 (COVID-19) Vaccin e, Unspecified 09/17/2023 Tdap Tetanus diptheria acell ular pertussis (Boostrix; Adacel) 7yo and older 03/22/2025,07/08/2015 Surgical History Surgery Date Site/Laterality Comments SECTION COLONOSCOPY 11/26/2015 [facility] - sigmoid diverticulosis, otherwise normal. CHOLECYSTECTOMY 03/2019 BREAST LUMPECTOMY 01/2022 Right : breast cancer Medical History Medical History Date Comments Allergic rhinitis 07/08/2015 Iron deficiency anemia 07/29/2015 Essential hypertension 08/05/2015 Invasive ductal carcinoma of breast, right ([facility] V24, [facility] V28) 12/16/202102/06 lumpectomy, RT, on anastrazole BRCA negative; BRIP positive Morbid obesity with BMI of 4 0.0-44.9, adult ([facility] V24, [facility] V28) 08/07/2024 Prediabetes 01/27/2021 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 No 03/21/2025 Food Access & Nutrition Answer Date Rec orded Do you have access to a vari ety of food including fruits and vegetables? Yes 03/21/2025 Access to Healthcare Answer Date Record ed Within the last 3 months, ho w many times did you visit the emergency department for your medical care? 0 03/21/2025 Health Literacy Answer Date Recorded How often do you need to hav e someone help you when you read instructions, pamphlets, or other written material from your doctor or pharmacy? Never 03/21/2025 Caregiver: How often do you need to have someone help you when you read instructions, pamphlets, or other written material from your doctor or pharmacy? Not on file 03/21/2025 Financial Risk Answer Date Recorded How hard is it for you to pa y for the very basics like food, housing, medical care, and air conditioning / heating? Not very hard 03/21/2025 Transportation Answer Date Recorded Has the lack of transportati on kept you from meetings, work, or from getting things needed for daily living? No Has the lack of transportati on kept you from medical appointments or from getting medications? No 03/21/2025 Social Isolation Answer Date Recorded How often do you feel lonely or isolated from th ose around you? Rarely 03/21/2025 Food Risk Answer Date Recorded Within the past 12 months we worried whether our food would run out before we got money to buy more. Never true 03/21/2025 Within the past 12 months th e food we bought just didn't last and we didn't have money to get more. Never true 03/21/2025 Dependent Care Answer Date Recorded Do you need help finding or paying for care for your loved ones. For example, childbirth educator or elderly care for an older adult? No 03/21/2025 Education Answer Date Recorded Do you think completing more education or training, like finishing a GED, going to college, or learning a trade, would be helpful for you? Yes 03/21/2025 Employment and Income Answer Date Recor ded During the last four weeks, have you been actively looking for work? No 03/21/2025 Living Situation Answer Date Recorded What is your living situation? Unrecognized valu e 03/21/2025 Comments Unknown Sex and Gender Information Value Date Recorded Sex Assigned at Not on file Legal Sex Female 9:03 PM EST Gender Identity Not on file Sexual Orientation Not on file Obstetrics History Last Filed Vital Signs Vital Sign Reading Time Taken Comments Blood Pressure 128/88 03/22/2025 8:07 AM EDT Pulse 80 03/22/2025 8:07 AM EDT Temperature 36.3 C (97.4 F) 03/22/2025 8:07 AM EDT Respiratory Rate 18 03/22/2025 8:07 AM EDT Oxygen Saturation 98% 03/22/2025 8:07 AM EDT Inhaled Oxygen Concentration - - Weight 142 kg (312 lb 1.6 oz) 03/22/2025 8:07 AM EDT Height 167.6 cm (5' 6 ) 03/22/2025 8:07 AM EDT Body Mass Index 50.37 03/22/2025 8:07 AM EDT Plan of Treatment Upcoming Encounters Date Type Department Care Team (Late st Contact Info) Description 09/25/2025 8:00 AM EST Office Visit Adult Medicine [facility] [address] [place], [place] [phone] Jessica Mansfield PA [address] [place], [place] Health Maintenance Due Date Last Done Comments Hepatitis B Vaccines (1 of 3 - 19+ 3-dose series) 1991 Pneumococcal Vaccine: 50+ Years (1 of 2 - PCV) 1991 Zoster Vaccines (1 of 2) 1991 RSV Immunization Adult Patients (1 - Risk 50-74 years 1-dose series) 2022 HIV Screening 09/19/2022 Cervical Cancer Screening: Pap Smear 10/28/2024 10/28/2021 COVID-19 Vaccine ( season) 2025 09/17/2023, 08/20/2022, 08/15/2021, Additional history exists Influenza Vaccine (#1) 2025 , 08/18/2023, 08/20/2022, Additional history exists Hypertension/CHF/CAD Annual BMP Blood Test 09/21/2025 09/21/2024, 09/20/2023 Colorectal Cancer Screening: Colonoscopy 11/26/2025 11/26/2015 Breast Cancer Screening 12/15/2025 12/16/2023 Social Influencers of Health Screening 03/21/2026 03/21/2025 Cholesterol Screening (Lipid Panel) 09/21/2029 09/21/2024, 04/27/2022 DTaP,Tdap,and Td Vaccines (3 - Td or Tdap) 03/22/2035 03/22/2025, 07/08/2015 Hepatitis C Screening Completed 09/20/2023 Depression Screening Completed 03/21/2025 HIB Vaccines Aged Out No longer eligi [...] Lipid screening HEPATITIS C SCREENING Routine 09/20/2023 HM PAP SMEAR Routine 10/28/2021 COLONOSCOPY Routine 11/26/2015 from Last 3 Months or Most Recently Relevant to Health Maintenance Results * (ABNORMAL) Lipid panel with reflex to direct LDL (09/21/2024 8:47 AM EST) Cholesterol 222(H) 0 - 200 mg/dL LAB CHEMISTRY METHOD 09/21/2024 10:11 AM [facility] Triglycerides 70 0 - 150 mg/dL LAB CHEMISTRY METHOD 09/21/2024 10:11 AM [facility] HDL 68 >=40 mg/dL LAB CHEMISTRY METHOD 09/21/2024 10:11 AM [facility] LDL Calculated 140(H) 0 - 100 mg/dL LAB CHEMISTRY METHOD 09/21/2024 10:11 AM [facility] VLDL Cholesterol Duglas 14 mg/dL LAB CHEMISTRY METHOD 09/21/2024 10:11 AM [facility] Non HDL Chol. (LDL+VLDL) 154(H) <145 mg/dL LAB CHEMISTRY METHOD 09/21/2024 10:11 AM [facility] Chol/HDL Ratio 3.3 0.0 - 4.4 LAB CHEMISTRY METHOD 09/21/2024 10:11 AM [facility] Blood Venous blood specimen / Unknown Venipuncture / Unknown 09/21/2024 8:47 AM EST 09/21/2024 8:47 AM EST us Jessica SIDHU LAB BLOOD ORDERABLES Final Re sult [facility] [address] [place] [address], * (ABNORMAL) Comprehensive metabolic panel (09/21/2024 8:47 AM EST) Sodium 138 133 - 145 mmol/L LAB CHEMISTRY METHOD 09/21/2024 10:11 AM [facility] Potassium 4.2 3.5 - 5.5 mmol/L LAB CHEMISTRY METHOD 09/21/2024 10:11 AM [facility] Chloride 103 96 - 110 mmol/L LAB CHEMISTRY METHOD 09/21/2024 10:11 AM [facility] CO2 30 21 - 32 mmol/L LAB CHEMISTRY METHOD 09/21/2024 10:11 AM [facility] Anion Gap 5 3 - 11 LAB CHEMISTRY METHOD 09/21/2024 10:11 AM [facility] Glucose 106(H) 70 - 100 mg/dL LAB CHEMISTRY METHOD 09/21/2024 10:11 AM [facility] BUN 15 5 - 25 mg/dL LAB CHEMISTRY METHOD 09/21/2024 10:11 AM [facility] Creatinine 0.90 0.50 - 1.10 mg/dL LAB CHEMISTRY METHOD 09/21/2024 10:11 AM [facility] eGFR 77 >=60 mL/min/1. 73m2 LAB CHEMISTRY METHOD 09/21/2024 10:11 AM [facility] Comment:Calculation based on the Chronic Kidney Disease Epidemiology Collaboration (CKD-EPI) equation refit without adjustment for race. BUN/Creatinine Ratio 16.7 LAB CHEMISTRY METHOD 09/21/2024 10:11 AM [facility] Calcium 9.9 8.5 - 10.5 mg/dL LAB CHEMISTRY METHOD 09/21/2024 10:11 AM [facility] AST (SGOT) 30 10 - 42 unit/L LAB CHEMISTRY METHOD 09/21/2024 10:11 AM [facility] ALT (SGPT) 47 10 - 60 unit/L LAB CHEMISTRY METHOD 09/21/2024 10:11 AM [facility] Alkaline Phosphatase 78 42 - 121 unit/L LAB CHEMISTRY METHOD 09/21/2024 10:11 AM [facility] Total Protein 7.9 6.0 - 8.0 g/dL LAB CHEMISTRY METHOD 09/21/2024 10:11 AM [facility] Albumin 4.3 3.2 - 5.0 g/dL LAB CHEMISTRY METHOD 09/21/2024 10:11 AM [facility] Total Bilirubin 0.7 0.0 - 1.4 mg/dL LAB CHEMISTRY METHOD 09/21/2024 10:11 AM [facility] Blood Venous blood specimen / Unknown Venipuncture / Unknown 09/21/2024 8:47 AM EST 09/21/2024 8:47 AM EST Jessica SIDHU LAB BLOOD ORDERABLES Final Re sult [facility] [address] [place] [address], * Hepatitis C Screening (09/20/2023) Hepatitis C Screening ABSTRACTED Historical Provider HEALTH MAINTENANCE Final Result * Pap Smear (10/28/2021) Pap smear no interpretation , abstracted Historical Provider HEALTH MAINTENANCE Final Result * Colonoscopy (11/26/2015) Colonoscopy no interpretation , abstracted Anatomical Region Laterality Modality Other Historical Provider HEALTH MAINTENANCE Final Result from Last 3 Months or Most Recently Relevant to [place] [id number] Care Teams Iuss Analyst Relationship Specialty Start Date End Date Isabel Valentine MD [address] [place] [phone] PCP - General Internal Medicine 04/11/15
== END 2025-09-10 09:09 | disposition home or self-care (01) ==
LOC: HO.HGS 08:49
PROVIDERS: PCP Internal Medicine; Visit Provider Surgery
DX: C50.911 Malignant neoplasm of unspecified site of right female breast (principal); Z91.89 Other specified personal risk factors, not elsewhere classified
CPT/HCPCS: 99213